=== PATIENT | male | born 1970 | race Caucasian/White ===

== ENCOUNTER 2017-01-15 19:08 | Emergency (ER) | payer MEDICAID ==
[2017-01-15 19:13] VITALS: BP 127/83
[2017-01-15] MEDS ORDERED: KETOROLAC TROMETHAMINE INJ/PF 30 MG/1 ML SDV IV ONE (19:24)
--- NOTE | 2017-01-15 19:33 | ER Document Report ---
ED Medical Screen (RME) - General Chief Complaint: Seizure Stated Complaint: RIB PAIN,SEVERE BODY PAIN Notes: I briefly seen and evaluated this patient in my role as physician in triage. I have initiated orders based on this initial evaluation. Please see my colleague' s documentation for complete history, physical, management, diagnosis, and ultimate disposition. My brief evaluation: Patient presents complaining of left rib pain after having a seizure about 4 days ago. He says that he feels bruised and has pain especially with deep inspiration. He said he was afraid to come to the emergency department because he has had multiple issues over the years. The patient says it feels like he can't get any air into his left lung. He also indicates that a couple of days ago he tripped and hit the right side of his pelvis. He has some pain there as well. Patient denies hitting his head or headaches or vision disturbance. He is not on any blood thinners. The patient reports a long history of multiple trauma requiring reconstruction of his mandible and cervical spine. Reportedly in a separate incident he had intracranial hemorrhage after head trauma and was flown to [facility] where he had emergent neurosurgical decompression. He suffers from seizures for about a year now. On exam, patient alert and oriented no acute distress vital signs are stable patient is afebrile nontoxic appearing. Chest sounds are clear and equal bilaterally with no wheezes rales or rhonchi. Heart rate and rhythm are normal no murmurs. There is some bruising to the left breast left lower rib cage and left flank area. There is also bruising to the right lateral hip region. Medical decision making: We'll get imaging of areas injured and start with Toradol for pain management. TRAVEL OUTSIDE OF THE [place] IN LAST 30 DAYS: No - Related Data Allergies/Adverse Reactions: codeine [Codeine] Allergy (Verified 01/15/17 19:15) nalbuphine HCl [From Nubain] Allergy (Verified 01/15/17 19:15) Past Medical History Pulmonary Medical History: Reports: Hx Asthma Neurological Medical History: Reports: Hx Seizures Renal/ Medical History: Denies: Hx Peritoneal Dialysis GI Medical History: Reports: Hx Hepatitis - Hep C, Hx Ulcer Musculoskeltal Medical History: Reports Hx Arthritis, Reports Hx Musculoskeletal Deformity, Reports Hx Musculoskeletal Trauma Psychiatric Medical History: Reports: Hx Attention Deficit Hyperactivity Disorder, Hx Bipolar Disorder, Hx Depression Traumatic Medical History: Reports: Hx Traumatic Brain Injury Infectious Medical History: Reports: Hx Hepatitis - Hep C Past Surgical History: Reports: Hx Orthopedic Surgery - c6-c7 fusion, lower jaw reconstructions - Immunizations Hx Diphtheria, Pertussis, Tetanus Vaccination: No Physical Exam - Vital signs Vitals: Temp Pulse Resp BP Pulse Ox 98.3 F 95 19 127/83 H 97 01/15/17 19:11 01/15/17 19:11 01/15/17 19:11 01/15/17 19:11 01/15/17 19:11 Course - Vital Signs Vital signs: Temp Pulse Resp BP Pulse Ox 98.3 F 95 19 127/83 H 97 01/15/17 19:11 01/15/17 19:11 01/15/17 19:11 01/15/17 19:11 01/15/17 19:11
[2017-01-15 19:50] LABS: ABSOLUTE EOSINOPHILS # (AUTO) 0.2 10^3/uL (0.0-0.6); ABSOLUTE LYMPHOCYTES (AUTO) 1.9 10^3/uL (0.5-4.7); ABSOLUTE MONOCYTES (AUTO) 0.3 10^3/uL (0.1-1.4); ABSOLUTE NEUT (AUTO) 2.2 10^3/uL (1.7-8.2); EOSINOPHILS % (AUTO) 4.1 % (0-6); LYMPHOCYTES % (AUTO) 41.4 % (13-45); MEAN CORPUSCULAR HEMOGLOBIN 29.5 pg (27.0-33.4); MEAN CORPUSCULAR HGB CONC 33.2 g/dL (32.0-36.0); MEAN CORPUSCULAR VOLUME 89 fl (80-97); MONOCYTES % (AUTO) 5.9 % (3-13); RED CELL DISTRIBUTION WIDTH 13.9 % (11.5-14.0); SEGMENTED NEUTROPHILS % (AUTO) 47.6 % (42-78); WHITE BLOOD COUNT 4.7 10^3/uL (4.0-10.5)
[2017-01-15 20:09] LABS: ALANINE AMINOTRANSFERASE 62 U/L (21-72); ALBUMIN 4.3 g/dL (3.5-5.0); ALKALINE PHOSPHATASE 70 U/L (38-126); ANION GAP 13 (5-19); ASPARTATE AMINO TRANSFERASE 60 U/L (17-59); BILIRUBIN,DIRECT 0.4 mg/dL (0.0-0.4); BILIRUBIN,TOTAL 0.9 mg/dL (0.2-1.3); BLOOD UREA NITROGEN 14 mg/dL (7-20); CALCIUM 9.3 mg/dL (8.4-10.2); CARBON DIOXIDE 30 mmol/L (22-30); CHLORIDE 104 mmol/L (98-107); GLUCOSE 100 mg/dL (75-110); POTASSIUM 3.9 mmol/L (3.6-5.0); SODIUM 147.2 mmol/L (137-145); TOTAL PROTEIN 7.9 g/dL (6.3-8.2)
[2017-01-15] MEDS ORDERED: OXYCODONE-ACETAMINOPHEN 5-325 MG TABLET PO ONE (21:51)
--- NOTE | 2017-01-15 22:00 | ER Document Report ---
ED General - General Chief Complaint: Seizure Stated Complaint: RIB PAIN,SEVERE BODY PAIN Mode of Arrival: Ambulatory Information source: Patient Notes: 46-year-old male presents with complaints of rib pain. Patient notes he was seizure 4 days ago struck an object and since then has been having pain. Patient admits that he used to take 140 mg of methadone a day and for Percocet today but that he cut down on his pain medication. admits to sob TRAVEL OUTSIDE OF THE [place] IN LAST 30 DAYS: No - HPI Onset: Last week Onset/Duration: Persistent Quality of pain: Achy Severity: Mild Pain Level: 1 Associated symptoms: Shortness of breath Exacerbated by: Deep breathing Relieved by: Denies Similar symptoms previously: No Recently seen / treated by doctor: No - Related Data Allergies/Adverse Reactions: codeine [Codeine] Allergy (Verified 01/15/17 19:15) nalbuphine HCl [From Nubain] Allergy (Verified 01/15/17 19:15) Past Medical History - Social History Smoking Status: Never Smoker Cigarette use (# per day): No Chew tobacco use (# tins/day): No Smoking Education Provided: No Family History: Reviewed & Not Pertinent Patient has suicidal ideation: No Patient has homicidal ideation: No Pulmonary Medical History: Reports: Hx Asthma Neurological Medical History: Reports: Hx Seizures Renal/ Medical History: Denies: Hx Peritoneal Dialysis GI Medical History: Reports: Hx Hepatitis - Hep C, Hx Ulcer Musculoskeltal Medical History: Reports Hx Arthritis, Reports Hx Musculoskeletal Deformity, Reports Hx Musculoskeletal Trauma Psychiatric Medical History: Reports: Hx Attention Deficit Hyperactivity Disorder, Hx Bipolar Disorder, Hx Depression Traumatic Medical History: Reports: Hx Traumatic Brain Injury Infectious Medical History: Reports: Hx Hepatitis - Hep C Past Surgical History: Reports: Hx Orthopedic Surgery - c6-c7 fusion, lower jaw reconstructions - Immunizations Hx Diphtheria, Pertussis, Tetanus Vaccination: No Review of Systems - Review of Systems Notes: REVIEW OF SYSTEMS: CONSTITUTIONAL : Denies fever, chills, or sweats. Denies recent illness. EENT: Denies eye, ear, throat, or mouth pain or symptoms. Denies nasal or sinus congestion or discharge. Denies throat, tongue, or mouth swelling or difficulty swallowing. CARDIOVASCULAR: Denies chest pain. Denies palpitations or racing or irregular heart beat. Denies ankle edema. RESPIRATORY: Admits to left rib pain shortness of breath GASTROINTESTINAL: Denies abdominal pain or distention. Denies nausea, vomiting , or diarrhea. Denies blood in vomitus, stools, or per rectum. Denies black, tarry stools. Denies constipation. GENITOURINARY: Denies difficulty urinating, painful urination, burning, frequency, blood in urine, or discharge. MUSCULOSKELETAL: Denies back or neck pain or stiffness. Denies joint pain or swelling. SKIN: Denies rash, lesions or sores. HEMATOLOGIC : Denies easy bruising or bleeding. LYMPHATIC: Denies swollen, enlarged glands. NEUROLOGICAL: Denies confusion or altered mental status. Denies passing out or loss of consciousness. Denies dizziness or lightheadedness. Denies headache. Denies weakness or paralysis or loss of use of either side. Denies problems with gait or speech. Denies sensory loss, numbness, or tingling. Denies seizures. PSYCHIATRIC: Denies anxiety or stress. Denies depression, suicidal ideation, or homicidal ideation. ALL OTHER SYSTEMS REVIEWED AND NEGATIVE. Dictation was performed using [employer] voice recognition software PHYSICAL EXAMINATION: GENERAL: Well-appearing, well-nourished and in no acute distress. HEAD: Atraumatic, normocephalic. EYES: Pupils equal round and reactive to light, extraocular movements intact, sclera anicteric, conjunctiva are normal. ENT: Nares patent, oropharynx clear without exudates. Moist mucous membranes. NECK: Normal range of motion, supple without lymphadenopathy LUNGS: Faint end expiratory wheezing bilateral, no respiratory distress HEART: Regular rate and rhythm without murmurs ABDOMEN: Soft, nontender, nondistended abdomen. No guarding, no rebound. No masses appreciated. Musculoskeletal: Normal range of motion, no pitting or edema. No cyanosis. NEUROLOGICAL: Cranial nerves grossly intact. Normal speech, normal gait. Normal sensory, motor exams PSYCH: Normal mood, normal affect. SKIN: Warm, Dry, normal turgor, no rashes or lesions noted. Physical Exam - Vital signs Vitals: Temp Pulse Resp BP Pulse Ox 98.3 F 95 19 127/83 H 97 01/15/17 19:11 01/15/17 19:11 01/15/17 19:11 01/15/17 19:11 01/15/17 19:11 Course - Re-evaluation Re-evalutation: 01/15/17 21:59 X-ray were read as negative a CT has been ordered for further evaluation 01/15/17 23:07 CTs noted no significant abnormality, patient continuously asks for Percocet, I believe this is the real cause of his concern at this time After performing a Medical Screening Examination, I estimate there is LOW risk for INTRACRANIAL HEMORRHAGE, UNSTABLE SPINE FRACTURE, CENTRAL CORD SYNDROME, CAUDA EQUINA, THORACIC AORTIC DISSECTION, PNEUMOTHORAX, PERFORATED BOWEL, RUPTURED ABDOMINAL AORTIC ANEURYSM, ACUTE TENDON RUPTURE, COMPARTMENT SYNDROME, or OPEN FRACTURE, thus I consider the discharge disposition reasonable. Also, there is no evidence or peritonitis, sepsis, or toxicity. I have reevaluated this patient multiple times and no significant life threatening changes are noted. The patient and I have discussed the diagnosis and risks, and we agree with discharging home to follow-up with their primary doctor with the understanding that symptoms and presentations can change. We also discussed returning to the Emergency Department immediately if new or worsening symptoms occur. We have discussed the symptoms which are most concerning (e.g., bloody stool, fever, changing or worsening pain, vomiting) that necessitate immediate return. - Vital Signs Vital signs: Temp Pulse Resp BP Pulse Ox 98.3 F 95 19 127/83 H 97 01/15/17 19:11 01/15/17 19:11 01/15/17 19:11 01/15/17 19:11 01/15/17 19:11 - Laboratory Result Diagrams: 01/15/17 19:40 01/15/17 19:40 Laboratory results interpreted by me: 01/15/17 01/15/17 19:40 19:40 Hgb 13.0 L Sodium 147.2 H AST 60 H - Diagnostic Test Radiology reviewed: Image reviewed, Reports reviewed Discharge - Discharge Clinical Impression: Chest wall pain, Methadone dependence Condition: Stable Disposition: HOME, SELF-CARE Instructions: Chest Wall Pain ([facility]) Prescriptions: Oxycodone HCl/Acetaminophen [Percocet 5-325 mg Tablet] 1 - 2 tab PO Q4H PRN #15 tablet PRN Reason: Referrals: BUD ANDERSON MD [Primary Care Provider] - 01/18/17
== END 2017-01-15 23:25 | disposition home or self-care (01) ==
LOC: ER 19:08
DX: R07.81 Pleurodynia (principal); F11.20 Opioid dependence, uncomplicated; M79.1 Myalgia; R06.02 Shortness of breath; Z88.6 Allergy status to analgesic agent; Z86.19 Personal history of other infectious and parasitic diseases; Z87.820 Personal history of traumatic brain injury; Z98.1 Arthrodesis status
CPT/HCPCS: 36415; 71020; 71260; 80053; 85025; 99284

== ENCOUNTER 2017-07-11 16:04 | Emergency (ER) | payer MEDICAID ==
--- NOTE | 2017-07-11 16:36 | ER Document Report ---
ED Medical Screen (RME) - General TRAVEL OUTSIDE OF THE [place] IN LAST 30 DAYS: No <JERONIMO MONTE - Last Filed: 07/11/17 16:37> <TARALITTLEGIAN - Last Filed: 07/11/17 18:07> - General Chief Complaint: Seizure Stated Complaint: POSSIBLE SEIZURES Time Seen by Provider: 07/11/17 16:27 Notes: Patient is a 47 year old male presenting to the emergency department for seizures. Patient did not take his seizure medication today. Patient's father brought him into the ER today and he was present during both seizures. Father states that the first seizure occurred while the patient was in the bath tub. Patient was given 1 of his seizure medications during the seizure. Patient had another a few hours later and was also given one of his medications. Patient has had seizures for 2 years and is prescribed 3 types of seizure medications. Patient states that he always runs out of his medications 1 day early because his doctor does not prescribe them long enough. Father states that the patient was shaking, unable to talk, and did not have incontinence during the episodes. Patient has hepatitis C. (JERONIMO MONTE) - Related Data Allergies/Adverse Reactions: codeine [Codeine] Allergy (Verified 07/11/17 16:09) nalbuphine HCl [From Nubain] Allergy (Verified 07/11/17 16:09) Past Medical History - Social History Chew tobacco use (# tins/day): No Frequency of alcohol use: None Drug Abuse: None Pulmonary Medical History: Reports: Hx Asthma Neurological Medical History: Reports: Hx Seizures Renal/ Medical History: Denies: Hx Peritoneal Dialysis GI Medical History: Reports: Hx Hepatitis - Hep C, Hx Ulcer Musculoskeltal Medical History: Reports Hx Arthritis, Reports Hx Musculoskeletal Deformity, Reports Hx Musculoskeletal Trauma Psychiatric Medical History: Reports: Hx Attention Deficit Hyperactivity Disorder, Hx Bipolar Disorder, Hx Depression Traumatic Medical History: Reports: Hx Traumatic Brain Injury Infectious Medical History: Reports: Hx Hepatitis - Hep C Past Surgical History: Reports: Hx Orthopedic Surgery - c6-c7 fusion, lower jaw reconstructions - Immunizations Hx Diphtheria, Pertussis, Tetanus Vaccination: No History of Influenza Vaccine for 07/2017 - 12/2017 Season: Refused <JERONIMO MONTE - Last Filed: 07/11/17 16:37> Physical Exam <JERONIMO MONTE - Last Filed: 07/11/17 16:37> <GIAN ROMERO - Last Filed: 07/11/17 18:07> - Vital signs Vitals: Temp Pulse Resp BP Pulse Ox 98.2 F 130 H 20 133/88 H 94 07/11/17 16:10 07/11/17 16:10 07/11/17 16:10 07/11/17 16:10 07/11/17 16:10 - Notes Notes: GENERAL: Alert, interacts well, appears upset. Mild distress. HEAD: Normocephalic, atraumatic, no facial droop. LUNGS:No respiratory distress. EXTREMITIES: Moves all 4 extremities spontaneously. No pronator drift. 5/5 great toe raise strength bilaterally. No deformity to left shoulder but complains of pain with elevation of the left arm. NEUROLOGICAL: Alert and oriented x3. Normal speech. No weakness. (JERONIMO MONTE) Course - Laboratory Result Diagrams: 07/11/17 16:55 07/11/17 16:55 <GIAN ROMERO - Last Filed: 07/11/17 18:07> - Vital Signs Vital signs: Temp Pulse Resp BP Pulse Ox 98.2 F 130 H 20 133/88 H 94 07/11/17 16:10 07/11/17 16:10 07/11/17 16:10 07/11/17 16:10 07/11/17 16:10 - Laboratory Laboratory results interpreted by me: 07/11/17 07/11/17 16:55 16:55 Seg Neutrophils % 41.9 L Lymphocytes % 45.7 H Direct Bilirubin 0.5 H Total Protein 8.5 H Scribe Documentation - Scribe Written by [employer]:: Christine Santos 07/11/17 17:00 acting as scribe for :: Dave <JERONIMO MONTE - Last Filed: 07/11/17 16:37>
[2017-07-11 17:17] LABS: ABSOLUTE BASOPHILS # (AUTO) 0.1 10^3/uL (0.0-0.2); ABSOLUTE EOSINOPHILS # (AUTO) 0.2 10^3/uL (0.0-0.6); ABSOLUTE LYMPHOCYTES (AUTO) 2.7 10^3/uL (0.5-4.7); ABSOLUTE MONOCYTES (AUTO) 0.5 10^3/uL (0.1-1.4); ABSOLUTE NEUT (AUTO) 2.5 10^3/uL (1.7-8.2); BASOPHILS % (AUTO) 1.4 % (0-2); EOSINOPHILS % (AUTO) 2.8 % (0-6); HEMATOCRIT 44.9 % (37.9-51.0); HGB HCT DIFFERENCE 0.1; LYMPHOCYTES % (AUTO) 45.7 % (13-45); MEAN CORPUSCULAR HEMOGLOBIN 29.7 pg (27.0-33.4); MEAN CORPUSCULAR HGB CONC 33.5 g/dL (32.0-36.0); MEAN CORPUSCULAR VOLUME 89 fl (80-97); MONOCYTES % (AUTO) 8.2 % (3-13); RED BLOOD COUNT 5.06 10^6/uL (4.35-5.55); RED CELL DISTRIBUTION WIDTH 13.3 % (11.5-14.0); SEGMENTED NEUTROPHILS % (AUTO) 41.9 % (42-78)
[2017-07-11 17:25] LABS: APPEARANCE,URINE CLEAR; BILIRUBIN,URINE NEGATIVE (NEGATIVE); GLUCOSE, URINE NEGATIVE (NEGATIVE); KETONES,URINE NEGATIVE (NEGATIVE); LEUKOCYTE ESTERASE,URINE NEGATIVE (NEGATIVE); NITRITE,URINE NEGATIVE (NEGATIVE); PROTEIN,URINE NEGATIVE (NEGATIVE); URINE SPECIFIC GRAVITY 1.004; UROBILINOGEN,URINE NEGATIVE mg/dL (<2.0)
[2017-07-11 17:30] LABS: ALANINE AMINOTRANSFERASE 59 U/L (21-72); ALBUMIN 4.7 g/dL (3.5-5.0); ALKALINE PHOSPHATASE 87 U/L (38-126); ANION GAP 14 (5-19); ASPARTATE AMINO TRANSFERASE 43 U/L (17-59); BILIRUBIN,DIRECT 0.5 mg/dL (0.0-0.4); BILIRUBIN,TOTAL 0.5 mg/dL (0.2-1.3); BLOOD UREA NITROGEN 9 mg/dL (7-20); CARBON DIOXIDE 27 mmol/L (22-30); CHLORIDE 103 mmol/L (98-107); CREATININE RESULT 0.99 mg/dL (0.52-1.25); GLUCOSE 96 mg/dL (75-110); POTASSIUM 4.1 mmol/L (3.6-5.0); SODIUM 144.2 mmol/L (137-145); TOTAL PROTEIN 8.5 g/dL (6.3-8.2)
[2017-07-11] MEDS ORDERED: METHADONE HCL 10 MG TABLET PO ONE (18:34)
[2017-07-11] MEDS ORDERED: LORAZEPAM 1 MG TABLET PO ONE (18:34)
--- NOTE | 2017-07-11 18:41 | ER Document Report ---
ED General - General Chief Complaint: Seizure Stated Complaint: POSSIBLE SEIZURES Time Seen by Provider: 07/11/17 16:27 Mode of Arrival: Ambulatory Information source: Patient Notes: 47-year-old male history of brain injury seizure episodes anxiety presents after an episode today where he was shaking excessively but was able to talk to his father and was conscience during this episode. Father notes 2 similar episodes. Patient in the past this season gone into cardiac arrest but was not in cardiac arrest today patient notes that he did not take his anxiety medication or his pain medications today TRAVEL OUTSIDE OF THE [place] IN LAST 30 DAYS: No - HPI Onset: Just prior to arrival Onset/Duration: Sudden Quality of pain: Achy Severity: Mild Pain Level: 1 Associated symptoms: Other Exacerbated by: Denies Relieved by: Denies Similar symptoms previously: Yes Recently seen / treated by doctor: Yes - Related Data Allergies/Adverse Reactions: codeine [Codeine] Allergy (Verified 07/11/17 16:09) nalbuphine HCl [From Nubain] Allergy (Verified 07/11/17 16:09) Past Medical History - Social History Smoking Status: Current Every Day Smoker Cigarette use (# per day): Yes Chew tobacco use (# tins/day): No Smoking Education Provided: No Frequency of alcohol use: None Drug Abuse: None Family History: Reviewed & Not Pertinent Pulmonary Medical History: Reports: Hx Asthma Neurological Medical History: Reports: Hx Seizures Renal/ Medical History: Denies: Hx Peritoneal Dialysis GI Medical History: Reports: Hx Hepatitis - Hep C, Hx Ulcer Musculoskeltal Medical History: Reports Hx Arthritis, Reports Hx Musculoskeletal Deformity, Reports Hx Musculoskeletal Trauma Psychiatric Medical History: Reports: Hx Attention Deficit Hyperactivity Disorder, Hx Bipolar Disorder, Hx Depression Traumatic Medical History: Reports: Hx Traumatic Brain Injury Infectious Medical History: Reports: Hx Hepatitis - Hep C Past Surgical History: Reports: Hx Orthopedic Surgery - c6-c7 fusion, lower jaw reconstructions - Immunizations Hx Diphtheria, Pertussis, Tetanus Vaccination: No Review of Systems - Review of Systems Notes: REVIEW OF SYSTEMS: CONSTITUTIONAL : Denies fever, chills, or sweats. Denies recent illness. EENT: Denies eye, ear, throat, or mouth pain or symptoms. Denies nasal or sinus congestion or discharge. Denies throat, tongue, or mouth swelling or difficulty swallowing. CARDIOVASCULAR: Denies chest pain. Denies palpitations or racing or irregular heart beat. Denies ankle edema. RESPIRATORY: Denies cough, cold, or chest congestion. Denies shortness of breath, difficulty breathing, or wheezing. GASTROINTESTINAL: Denies abdominal pain or distention. Denies nausea, vomiting , or diarrhea. Denies blood in vomitus, stools, or per rectum. Denies black, tarry stools. Denies constipation. GENITOURINARY: Denies difficulty urinating, painful urination, burning, frequency, blood in urine, or discharge. MUSCULOSKELETAL: Denies back or neck pain or stiffness. Denies joint pain or swelling. SKIN: Denies rash, lesions or sores. HEMATOLOGIC : Denies easy bruising or bleeding. LYMPHATIC: Denies swollen, enlarged glands. NEUROLOGICAL: Admits to an episode of shaking PSYCHIATRIC: Admits to anxiety ALL OTHER SYSTEMS REVIEWED AND NEGATIVE. Dictation was performed using [employer] voice recognition software PHYSICAL EXAMINATION: GENERAL: Well-appearing, well-nourished and in no acute distress. HEAD: Atraumatic, normocephalic. EYES: Pupils equal round and reactive to light, extraocular movements intact, sclera anicteric, conjunctiva are normal. ENT: Nares patent, oropharynx clear without exudates. Moist mucous membranes. NECK: Normal range of motion, supple without lymphadenopathy LUNGS: Breath sounds clear to auscultation bilaterally and equal. No wheezes rales or rhonchi. HEART: Regular rate and rhythm without murmurs ABDOMEN: Soft, nontender, nondistended abdomen. No guarding, no rebound. No masses appreciated. Musculoskeletal: Normal range of motion, no pitting or edema. No cyanosis. NEUROLOGICAL: Cranial nerves grossly intact. Normal speech, normal gait. Normal sensory, motor exams PSYCH: Normal mood, normal affect. SKIN: Warm, Dry, normal turgor, no rashes or lesions noted. Physical Exam - Vital signs Vitals: Temp Pulse Resp BP Pulse Ox 98.2 F 130 H 20 133/88 H 94 07/11/17 16:10 07/11/17 16:10 07/11/17 16:10 07/11/17 16:10 07/11/17 16:10 Course - Re-evaluation Re-evalutation: 07/11/17 18:41 Patient's lab work noted no significant abnormality, I believe the patient was having a panic attack as he was alert oriented and remembers the whole episode. Patient will be given his benzo and his methadone and will follow up with his primary care physician tomorrow After performing a Medical Screening Examination, I estimate there is LOW risk for ACUTE GLAUCOMA, TEMPORAL ARTERITIS, MENINGITIS, INCRANIAL HEMORRHAGE, or ISCHEMIC STROKE thus I consider the discharge disposition reasonable. I have reevaluated this patient multiple times and no significant life threatening changes are noted. The patient and I have discussed the diagnosis and risks, and we agree with discharging home with close follow-up with the understanding that symptoms and presentations can change. We also discussed returning to the Emergency Department immediately if new or worsening symptoms occur. We have discussed the symptoms which are most concerning (e.g., changing or worsening symptoms, new numbness or weakness, vomiting, fever) that necessitate immediate return. - Vital Signs Vital signs: Temp Pulse Resp BP Pulse Ox 98.2 F 130 H 20 133/88 H 94 07/11/17 16:10 07/11/17 16:10 07/11/17 16:10 07/11/17 16:10 07/11/17 16:10 - Laboratory Result Diagrams: 07/11/17 16:55 07/11/17 16:55 Laboratory results interpreted by me: 07/11/17 07/11/17 16:55 16:55 Seg Neutrophils % 41.9 L Lymphocytes % 45.7 H Direct Bilirubin 0.5 H Total Protein 8.5 H Discharge - Discharge Clinical Impression: Panic attack, History of seizure disorder Condition: Stable Disposition: HOME, SELF-CARE Instructions: Seizure, Known Epileptic ([facility]) Referrals: BUD ANDERSON MD [Primary Care Provider] - Follow up tomorrow
[2017-07-11 19:01] VITALS: BP 126/99
--- NOTE | 2017-07-12 06:24 | EKG REPORT ---
SEVERITY:- OTHERWISE NORMAL ECG - SINUS TACHYCARDIA : Confirmed by: Georgiana Palacio MD 12-Jul-2017 06:23:06
== END 2017-07-11 19:01 | disposition home or self-care (01) ==
LOC: ER 16:04
DX: F41.0 Panic disorder [episodic paroxysmal anxiety] (principal); G40.909 Epilepsy, unspecified, not intractable, without status epilepticus; F17.210 Nicotine dependence, cigarettes, uncomplicated; Z86.19 Personal history of other infectious and parasitic diseases; Z87.820 Personal history of traumatic brain injury; Z98.1 Arthrodesis status; Z88.6 Allergy status to analgesic agent
CPT/HCPCS: 93005; 99284; 36415; 80177; 85025; 80053; 81001; 93010; J3490

== ENCOUNTER 2018-01-06 07:24 | Emergency (ER) | payer MEDICAID, OTHER ==
[2018-01-06] MEDS ORDERED: METHYLPREDNISOLONE INJ 125 MG/2 ML SDV IV ONE (07:46)
--- NOTE | 2018-01-06 07:46 | ER Document Report ---
ED General - General Chief Complaint: Shortness Of Breath Stated Complaint: SHORTNESS OF BREATH Time Seen by Provider: 01/06/18 07:33 Notes: 47-year-old male who has multiple complaints but mainly complains of some mild difficulty breathing over the last several days. Patient reports being diagnosed with influenza approximately 3 weeks ago. He states he has been doing okay since then but over the last several days he states he has been feeling a little short of breath. He has been using his father's oxygen on and off. The patient denies fever or chills. Patient also states he is very anxious and upset that his chronic pain doctor and neurologist Dr. Mckeon is out of business and he has no one to get his Xanax or psychiatric medicines from. He has been to his family doctor who he states is not helping him. Patient denies any chest pain. EMS reported wheezing upon arrival. Gave him a nebulizer treatment. Patient is feeling better TRAVEL OUTSIDE OF THE [place] IN LAST 30 DAYS: No - Related Data Allergies/Adverse Reactions: codeine [Codeine] Allergy (Verified 07/11/17 16:09) nalbuphine HCl [From Nubain] Allergy (Verified 07/11/17 16:09) Past Medical History - Social History Smoking Status: Current Every Day Smoker Family History: Reviewed & Not Pertinent Pulmonary Medical History: Reports: Hx Asthma Neurological Medical History: Reports: Hx Seizures Renal/ Medical History: Denies: Hx Peritoneal Dialysis GI Medical History: Reports: Hx Hepatitis - Hep C, Hx Ulcer Musculoskeltal Medical History: Reports Hx Arthritis, Reports Hx Musculoskeletal Deformity, Reports Hx Musculoskeletal Trauma Psychiatric Medical History: Reports: Hx Attention Deficit Hyperactivity Disorder, Hx Bipolar Disorder, Hx Depression Traumatic Medical History: Reports: Hx Traumatic Brain Injury Infectious Medical History: Reports: Hx Hepatitis - Hep C Past Surgical History: Reports: Hx Orthopedic Surgery - c6-c7 fusion, lower jaw reconstructions - Immunizations Hx Diphtheria, Pertussis, Tetanus Vaccination: No Review of Systems - Review of Systems Constitutional: No symptoms reported EENT: No symptoms reported Cardiovascular: No symptoms reported Respiratory: Cough, Short of breath, Wheezing Gastrointestinal: No symptoms reported Genitourinary: No symptoms reported Male Genitourinary: No symptoms reported Musculoskeletal: No symptoms reported Skin: No symptoms reported Hematologic/Lymphatic: No symptoms reported Neurological/Psychological: No symptoms reported -: Yes All other systems reviewed and negative Physical Exam - Vital signs Vitals: Temp Pulse Resp BP Pulse Ox 98.3 F 92 18 111/68 97 01/06/18 07:33 01/06/18 07:33 01/06/18 07:33 01/06/18 07:33 01/06/18 07:33 - Notes Notes: GENERAL_APPEARANCE: well_nourished, alert, cooperative, no_acute_distress, no_ obvious_discomfort. VITALS: reviewed, see vital signs table. HEAD: no_swelling\tenderness on the head. EYES: PERRL, EOMI, conjunctiva_clear. NOSE: no_nasal_discharge. MOUTH: (-)decreased moisture. THROAT: no_tonsilar_inflammation, no_airway_obstruction. no_lymphadenopathy NECK: supple, no_neck_tenderness, (-)thyromegaly. BACK: no_back_tenderness. CHEST_WALL: no_chest_tenderness. LUNGS: Very scant_wheezing, no_rales, no_rhonchi, (-)accessory muscle use, good air exchange bilateral. HEART: normal_rate, normal_rhythm, normal_S1, normal_S2, (-)S3, (-)S4, no_ murmur, no_rub. ABDOMEN: normal_BS, soft, no_abd_tenderness, (-)guarding, (-)rebound, no_ organomegaly, no_abd_masses. EXTREMITIES: good pulses in all_extremities, no_swelling\tenderness in the extremities, no_edema. SKIN: warm, dry, good_color, no_rash. MENTAL_STATUS: speech_clear, oriented_X_3, anxious_affect, responds_ appropriately to questions. NEURO: Neg Motor or Sensory Deficits on exam, CN 2-12 intact, DTR 2+ symmetric x 4, No cerbellar signs Course - Re-evaluation Re-evalutation: 01/06/18 07:45 47-year-old male history of asthma presents with some difficulty breathing. Patient was given an aerosol treatment via EMS. We will give the patient a dose of steroids here. He is breathing well and has no oxygen requirements. Patient is very anxious and was difficult to get a wording edgewise while speaking with him. He states he took an extra Vyvanse this morning. The patient has no calf pain or leg swelling on my exam. Homans sign is negative bilateral. There is no history of DVT or PE that I am aware of. She is requesting pain management referral. I spoke with him that his family doctor would be the best lumber yard worker for these kind of referrals. He also asked if I could prescribe him his Xanax and pain medicine. Again I explained to him that I cannot prescribe chronic pain medicines or psychiatric medicines I spoke with him about the stop act. 01/06/18 09:46 Laboratory 01/06/18 01/06/18 01/06/18 07:16 07:16 07:16 WBC 5.4 RBC 4.61 Hgb 13.4 L Hct 41.0 MCV 89 MCH 29.1 MCHC 32.7 RDW 13.4 Plt Count 412 Seg Neutrophils % 56.2 Lymphocytes % 31.6 Monocytes % 11.2 Eosinophils % 0.5 Basophils % 0.5 Absolute Neutrophils 3.0 Absolute Lymphocytes 1.7 Absolute Monocytes 0.6 Absolute Eosinophils 0.0 Absolute Basophils 0.0 Sodium 150.0 H Potassium 3.4 L Chloride 107 Carbon Dioxide 28 Anion Gap 15 BUN 11 Creatinine 0.91 Est GFR ( Amer) > 60 Est GFR (Non-Af Amer) > 60 Glucose 100 Calcium 9.5 Total Bilirubin 0.6 Direct Bilirubin 0.3 Neonat Total Bilirubin Not Reportable Neonat Direct Bilirubin Not Reportable Neonat Indirect Bili Not Reportable AST 66 H ALT 63 Alkaline Phosphatase 64 Creatine Kinase 200 H Troponin I < 0.012 Total Protein 8.3 H Albumin 4.5 Chest X-Ray 01/06/18 07:40 IMPRESSION: Lungs hyperinflated and hyperlucent from obstructive disease. No focal infiltrates. 01/06/18 09:48 Patient is doing much better I reexamined his lungs lungs are clear. I spoke with him by caring for his asthma disease. The patient is very focused on narcotic pain medicine. He stated Dr. Mckeon is no longer working. He has saw his primary care doctor Dr. Anderson and they have set him up with pain management but he is yet to have an appointment. Patient is well known to us - A. I spoke with the patient and they will be unable to provide him with narcotics. The patient expresses frustration and stated he would just have to check in again. I spoke with him at length. And told him to call his family doctor for further care. - Vital Signs Vital signs: Temp Pulse Resp BP Pulse Ox 98.3 F 92 18 111/68 98 01/06/18 07:33 01/06/18 07:33 01/06/18 07:33 01/06/18 07:33 01/06/18 08:25 - Laboratory Result Diagrams: 01/06/18 07:16 01/06/18 07:16 Laboratory results interpreted by me: 01/06/18 01/06/18 07:16 07:16 Hgb 13.4 L Sodium 150.0 H Potassium 3.4 L AST 66 H Creatine Kinase 200 H Total Protein 8.3 H - EKG Interpretation by Co EKG shows normal: Sinus rhythm Rate: Normal Rhythm: NSR Discharge - Discharge Clinical Impression: Asthma exacerbation attacks Condition: Good Disposition: HOME, SELF-CARE Instructions: Asthma ([facility]) Additional Instructions: Please follow-up with Dr. Anderson and your pain specialist for further care Referrals: BUD ANDERSON MD [Primary Care Provider] - Follow up as needed
[2018-01-06 08:30] LABS: ABSOLUTE LYMPHOCYTES (AUTO) 1.7 10^3/uL (0.5-4.7); ABSOLUTE MONOCYTES (AUTO) 0.6 10^3/uL (0.1-1.4); BASOPHILS % (AUTO) 0.5 % (0-2); EOSINOPHILS % (AUTO) 0.5 % (0-6); HEMOGLOBIN 13.4 g/dL (13.5-17.0); LYMPHOCYTES % (AUTO) 31.6 % (13-45); MEAN CORPUSCULAR HEMOGLOBIN 29.1 pg (27.0-33.4); MEAN CORPUSCULAR HGB CONC 32.7 g/dL (32.0-36.0); MEAN CORPUSCULAR VOLUME 89 fl (80-97); MONOCYTES % (AUTO) 11.2 % (3-13); PLATELET COUNT 412 10^3/uL (150-450); RED BLOOD COUNT 4.61 10^6/uL (4.35-5.55); RED CELL DISTRIBUTION WIDTH 13.4 % (11.5-14.0); SEGMENTED NEUTROPHILS % (AUTO) 56.2 % (42-78); TOTAL CELLS COUNTED % (AUTO) 100 %; WHITE BLOOD COUNT 5.4 10^3/uL (4.0-10.5)
--- NOTE | 2018-01-06 08:38 | RADIOLOGY REPORT (SQ) ---
EXAM DESCRIPTION: CHEST SINGLE VIEW COMPLETED DATE/TIME: 01/06/2018 7:59 am REASON FOR STUDY: SOB COMPARISON: CT chest 01/15/2017 Chest films 01/15/2017, 07/08/2015 EXAM PARAMETERS: NUMBER OF VIEWS: One view. TECHNIQUE: Single frontal radiographic view of the chest acquired. RADIATION DOSE: NA LIMITATIONS: None. FINDINGS: LUNGS AND PLEURA: Lungs are hyperinflated and hyperlucent from obstructive disease. No acute infiltrates. No pleural effusion. No pneumothorax. MEDIASTINUM AND HILAR STRUCTURES: No masses. Contour normal. HEART AND VASCULAR STRUCTURES: Heart normal in size. Normal vasculature. BONES: No acute findings. HARDWARE: None in the chest. OTHER: No other significant finding. IMPRESSION: Lungs hyperinflated and hyperlucent from obstructive disease. No focal infiltrates. TECHNICAL DOCUMENTATION: JOB ID: [id number] [employer]- All Rights Reserved Reading location - IP/workstation name: [email or web address]
[2018-01-06 08:47] LABS: ALANINE AMINOTRANSFERASE 63 U/L (21-72); ALBUMIN 4.5 g/dL (3.5-5.0); ALKALINE PHOSPHATASE 64 U/L (38-126); ANION GAP 15 (5-19); ASPARTATE AMINO TRANSFERASE 66 U/L (17-59); BILIRUBIN,DIRECT 0.3 mg/dL (0.0-0.4); BILIRUBIN,TOTAL 0.6 mg/dL (0.2-1.3); BLOOD UREA NITROGEN 11 mg/dL (7-20); CALCIUM 9.5 mg/dL (8.4-10.2); CARBON DIOXIDE 28 mmol/L (22-30); CHLORIDE 107 mmol/L (98-107); CREATINE KINASE 200 U/L (55-170); GLUCOSE 100 mg/dL (75-110); POTASSIUM 3.4 mmol/L (3.6-5.0); TOTAL PROTEIN 8.3 g/dL (6.3-8.2)
[2018-01-06] MEDS ORDERED: MORPHINE SULFATE 10 MG/ML INJ IV ONE (08:54)
--- NOTE | 2018-01-06 09:12 | EKG REPORT ---
SEVERITY:- NORMAL ECG - SINUS RHYTHM : Confirmed by: Matt Shelton 06-Jan-2018 09:11:31
[2018-01-06 10:52] VITALS: BP 121/78
== END 2018-01-06 10:45 | disposition home or self-care (01) ==
LOC: ER 07:24
DX: J45.901 Unspecified asthma with (acute) exacerbation (principal); F41.9 Anxiety disorder, unspecified; R06.02 Shortness of breath; F17.200 Nicotine dependence, unspecified, uncomplicated; Z88.5 Allergy status to narcotic agent; R05 Cough
CPT/HCPCS: 93005; 99285; 96374; 96375; 36415; 82550; 85025; 80053; 84484; 71045; 93010; J2930; J2270

== ENCOUNTER 2019-04-04 19:54 | Emergency (ER) | payer MEDICAID ==
--- NOTE | 2019-04-04 20:43 | ER Document Report ---
ED Medical Screen (RME) - General Chief Complaint: Psych Problem Stated Complaint: SUICIDE IDEATIONS, SEIZURES Time Seen by Provider: 04/04/19 20:30 Primary Care Provider: BUD ANDERSON MD [Primary Care Provider] - Follow up as needed TRAVEL OUTSIDE OF THE [place] IN LAST 30 DAYS: No - HPI Notes: 04/04/19 20:37 Patient is a 48-year-old male with a history of seizure disorder, multiple previous brain surgeries, chronic pain and on methadone, COPD, mental health disorders who presents complaining of having a seizure yesterday and again this morning despite being on his medicines. He is also been experiencing visual hallucinations. Patient states that all of these things have made him more concerned and have caused him to have worsening of his depressed mood. Patient is not sure how to cope with this setback and states that his family is starting to think that he is crazy. Patient has no SI or HI. He also has chest tightness and wheezing. He is eating and drinking without difficulty. He is urinating normally. Denies fever, neck pain, URI, Abd pain, dysuria, back pain, or rash. I have treated and performed a rapid initial assessment of this patient. A comprehensive ED assessment and evaluation of the patient, analysis of test results and completion of medical decision making process will be conducted by additional ED providers. PHYSICAL EXAMINATION: GENERAL: Well-appearing, well-nourished and in no acute distress. A&Ox4. Answers questions appropriately. LUNGS: b/l expiratory wheezes throughout. HEART: Regular rate and rhythm without murmurs, rubs, gallops. Tachycardic. Extremities: No cyanosis, clubbing, or edema b/l. NEUROLOGICAL: Normal speech, normal gait. Cranial nerves grossly intact. PSYCH: emotional and crying - Related Data Allergies/Adverse Reactions: codeine [Codeine] Allergy (Verified 07/11/17 16:09) nalbuphine HCl [From Nubain] Allergy (Verified 07/11/17 16:09) Past Medical History Pulmonary Medical History: Reports: Hx Asthma Neurological Medical History: Reports: Hx Seizures Renal/ Medical History: Denies: Hx Peritoneal Dialysis GI Medical History: Reports: Hx Hepatitis - Hep C, Hx Ulcer Musculoskeltal Medical History: Reports Hx Arthritis, Reports Hx Musculoskeletal Deformity, Reports Hx Musculoskeletal Trauma Psychiatric Medical History: Reports: Hx Attention Deficit Hyperactivity Disorder, Hx Bipolar Disorder, Hx Depression Traumatic Medical History: Reports: Hx Traumatic Brain Injury Infectious Medical History: Reports: Hx Hepatitis - Hep C Past Surgical History: Reports: Hx Orthopedic Surgery - c6-c7 fusion, lower jaw reconstructions - Immunizations Hx Diphtheria, Pertussis, Tetanus Vaccination: No History of Influenza Vaccine for 07/2017 - 12/2017 Season: Refused Physical Exam - Vital signs Vitals: Temp Pulse Resp BP Pulse Ox 98.2 F 130 H 16 119/90 H 92 04/04/19 20:12 04/04/19 20:12 04/04/19 20:12 04/04/19 20:12 04/04/19 20:12 Course - Vital Signs Vital signs: Temp Pulse Resp BP Pulse Ox 98.2 F 130 H 16 119/90 H 92 04/04/19 20:12 04/04/19 20:12 04/04/19 20:12 04/04/19 20:12 04/04/19 20:12 Doctor's Discharge - Discharge Referrals: BUD ANDERSON MD [Primary Care Provider] - Follow up as needed
[2019-04-04 21:33] LABS: ABSOLUTE BASOPHILS # (AUTO) 0.1 10^3/uL (0.0-0.2); ABSOLUTE LYMPHOCYTES (AUTO) 2.5 10^3/uL (0.5-4.7); ABSOLUTE MONOCYTES (AUTO) 0.6 10^3/uL (0.1-1.4); ABSOLUTE NEUT (AUTO) 5.4 10^3/uL (1.7-8.2); BASOPHILS % (AUTO) 0.7 % (0-2); EOSINOPHILS % (AUTO) 0.1 % (0-6); HEMATOCRIT 42.4 % (37.9-51.0); HEMOGLOBIN 14.3 g/dL (13.5-17.0); LYMPHOCYTES % (AUTO) 29.1 % (13-45); MEAN CORPUSCULAR HEMOGLOBIN 30.4 pg (27.0-33.4); MEAN CORPUSCULAR HGB CONC 33.6 g/dL (32.0-36.0); MEAN CORPUSCULAR VOLUME 91 fl (80-97); MONOCYTES % (AUTO) 7.3 % (3-13); PLATELET COUNT 367 10^3/uL (150-450); RED BLOOD COUNT 4.69 10^6/uL (4.35-5.55); RED CELL DISTRIBUTION WIDTH 13.3 % (11.5-14.0); SEGMENTED NEUTROPHILS % (AUTO) 62.8 % (42-78); TOTAL CELLS COUNTED % (AUTO) 100 %; WHITE BLOOD COUNT 8.6 10^3/uL (4.0-10.5)
[2019-04-04 22:01] LABS: ACETAMINOPHEN < 10 ug/mL (10-30); ALANINE AMINOTRANSFERASE 12 U/L (21-72); ALBUMIN 5.2 g/dL (3.5-5.0); ALCOHOL < 10 mg/dL (NONE DETECTED); ALKALINE PHOSPHATASE 88 U/L (38-126); ANION GAP 15 (5-19); ASPARTATE AMINO TRANSFERASE 29 U/L (17-59); BILIRUBIN,DIRECT 0.3 mg/dL (0.0-0.4); BILIRUBIN,TOTAL 0.8 mg/dL (0.2-1.3); BLOOD UREA NITROGEN 27 mg/dL (7-20); CALCIUM 10.4 mg/dL (8.4-10.2); CARBON DIOXIDE 30 mmol/L (22-30); CHLORIDE 100 mmol/L (98-107); GLUCOSE 138 mg/dL (75-110); POTASSIUM 4.2 mmol/L (3.6-5.0); SALICYLATE < 1.0 mg/dL (2.0-20.0); SODIUM 145.2 mmol/L (137-145)
--- NOTE | 2019-04-04 22:01 | RADIOLOGY REPORT (SQ) ---
EXAM DESCRIPTION: [facility]: XR CHEST 1 VIEW CLINICAL HISTORY: 48 years Male, wheezing COMPARISON: 01/06/2018 FINDINGS: Lungs are clear, with no focal infiltrate, pneumothorax, or pleural effusion. Mediastinum is within normal limits for this positioning. Bony structures are unremarkable. IMPRESSION: 1. No acute pulmonary findings.
[2019-04-04] MEDS ORDERED: NORMAL SALINE 1000 ML 2,000 ML IV ONE (22:46)
[2019-04-04 22:56] LABS: CREATINE KINASE 191 U/L (55-170)
[2019-04-04 22:58] LABS: APPEARANCE,URINE TURBID; BILIRUBIN,URINE NEGATIVE (NEGATIVE); GLUCOSE, URINE NEGATIVE (NEGATIVE); KETONES,URINE NEGATIVE (NEGATIVE); LEUKOCYTE ESTERASE,URINE TRACE (NEGATIVE); NITRITE,URINE NEGATIVE (NEGATIVE); PROTEIN,URINE 100 mg/dL (NEGATIVE); URINE SPECIFIC GRAVITY 1.018; UROBILINOGEN,URINE NEGATIVE mg/dL (<2.0)
[2019-04-04 22:59] LABS: COLOR,URINE YELLOW
[2019-04-04 23:13] LABS: URINE BARBITURATES SCREEN NEGATIVE; URINE BENZODIAZEPINES SCREEN UNCONFIRMED POSITIVE; URINE COCAINE SCREEN UNCONFIRMED POSITIVE; URINE MARIJUANA (THC) SCREEN NEGATIVE; URINE METHADONE SCREEN UNCONFIRMED POSITIVE; URINE PHENCYCLIDINE SCREEN NEGATIVE
[2019-04-05] MEDS ORDERED: METOCLOPRAMIDE HCL INJ/PF 10 MG/2 ML SDV IV ONE (00:02)
--- NOTE | 2019-04-05 00:10 | ER Document Report ---
ED General - General Chief Complaint: Psych Problem Stated Complaint: SUICIDE IDEATIONS, SEIZURES Time Seen by Provider: 04/04/19 20:30 Primary Care Provider: BUD ANDERSON MD [ACTIVE STAFF] - Follow up as needed Notes: jas is a 48-year-old male with a history of seizure disorder, multiple previous brain surgeries, chronic pain and on methadone, COPD, mental health disorders who presents complaining of having a seizure yesterday and again this morning despite being on his medicines. Complained of visual hallucinations and she has but denies this to me. Patient states because he had been doing so well in terms of his seizure frequency for the past 4 months he has felt increasingly depressed and anxious regarding that he is having seizures again. Patient is not sure how to cope with this setback and states that his family is starting to think that he is crazy. Patient has no SI or HI. He also has chest tightness and wheezing. He is eating and drinking without difficulty. When I walk into t he room he is eating a bag of Doritos and drinking a large soda. He is urinating normally. Denies fever, neck pain, URI, Abd pain, dysuria, back pain, or rash. TRAVEL OUTSIDE OF THE [place] IN LAST 30 DAYS: No - Related Data Allergies/Adverse Reactions: codeine [Codeine] Allergy (Verified 07/11/17 16:09) nalbuphine HCl [From Nubain] Allergy (Verified 07/11/17 16:09) Past Medical History - General Information source: Patient - Social History Smoking Status: Current Every Day Smoker Chew tobacco use (# tins/day): No Frequency of alcohol use: None Drug Abuse: None Lives with: Family Family History: Reviewed & Not Pertinent Patient has suicidal ideation: No Patient has homicidal ideation: No Pulmonary Medical History: Reports: Hx Asthma, Hx COPD Neurological Medical History: Reports: Hx Seizures Renal/ Medical History: Denies: Hx Peritoneal Dialysis GI Medical History: Reports: Hx Hepatitis - Hep C, Hx Ulcer Musculoskeletal Medical History: Reports Hx Arthritis, Reports Hx Musculoskeletal Deformity, Reports Hx Musculoskeletal Trauma Psychiatric Medical History: Reports: Hx Attention Deficit Hyperactivity Disorder, Hx Bipolar Disorder, Hx Depression Traumatic Medical History: Reports: Hx Traumatic Brain Injury Infectious Medical History: Reports: Hx Hepatitis - Hep C Past Surgical History: Reports: Hx Orthopedic Surgery - c6-c7 fusion, lower jaw reconstructions - Immunizations Hx Diphtheria, Pertussis, Tetanus Vaccination: No Review of Systems - Review of Systems Notes: Constitutional: Negative for fever. HENT: Negative for sore throat. Eyes: Negative for visual changes. Cardiovascular: Negative for chest pain. Respiratory: Negative for shortness of breath. Gastrointestinal: Negative for abdominal pain, vomiting or diarrhea. Genitourinary: Negative for dysuria. Musculoskeletal: Negative for back pain. Skin: Negative for rash. Neurological: Positive for chronic headaches 10 point ROS negative except as marked above and in HPI. Physical Exam - Vital signs Vitals: Temp Pulse Resp BP Pulse Ox 98.2 F 130 H 16 119/90 H 92 04/04/19 20:12 04/04/19 20:12 04/04/19 20:12 04/04/19 20:12 04/04/19 20:12 Interpretation: Tachycardic Notes: PHYSICAL EXAMINATION: GENERAL: Well-appearing, well-nourished and in no acute distress. HEAD: Atraumatic, normocephalic. EYES: Pupils equal round and reactive to light, extraocular movements intact, sclera anicteric, conjunctiva are normal. ENT: nares patent, oropharynx clear without exudates. Moist mucous membranes. NECK: Normal range of motion, supple without lymphadenopathy LUNGS: Breath sounds clear to auscultation bilaterally and equal. No wheezes rales or rhonchi. HEART: Regular rate and rhythm without murmurs ABDOMEN: Soft, nontender, normoactive bowel sounds. No guarding, no rebound. No masses appreciated. EXTREMITIES: Normal range of motion, no pitting or edema. No cyanosis. NEUROLOGICAL: Face symmetric. Tongue protrudes midline. Extraocular motions intact. Pupils are 2 mm and equally reactive. Normal speech, normal gait. 5 out of 5 strength in both the distal and proximal upper and lower extremities bilaterally. Sensation is grossly intact throughout. Finger to nose testing normal. Pronator drift normal. PSYCH: Normal mood, normal affect. SKIN: Warm, Dry, normal turgor, no rashes or lesions noted. Course - Re-evaluation Re-evalutation: 04/05/19 00:12 Patient is presented with multiple complaints his main concerns of which appear to be chronic headaches which he has had for years. The patient is not here for psychiatric reasons and is unclear to me why a psychiatric protocol was ordered on this patient. He expressly denies suicidal homicidal ideation. Does not meet involuntary committal criteria, has chronic pain secondary to head trauma sustained several years ago and is on methadone for this. He has a known history of epilepsy and is concerned today that he has been having more seizures than normal. He has no focal neurologic deficits on exam. His labs are notable for an acute kidney injury consistent with a prerenal azotemia. IV fluids are being administered and we will recheck basic metabolic panel thereafter. Patient reports that he has had some nausea, vomiting, difficulty tolerating oral intake and his pattern is consistent with dehydration. He is also mildly tachycardic at time of presentation although recently came off of oxycodone after he ran out and it could also have a component of opiate withdrawal. The patient has a complaint that he fell and struck his head very hard several days ago and was bleeding out of his ears. He has no hemotympanum on exam but a CT of the head will be obtained. 04/05/19 03:04 Repeat basic metabolic panel has not returned, CT the head is completely unremarkable. The patient was smoking in the bathroom, has been noted to be up walking around, eating Doritos, drinking a fast food beverage and in no apparent discomfort. The patient is electing to leave the emergency department at this time as we have informed her that these behaviors are unacceptable. He will be leaving without discharge paperwork as he did not wish to allow me to complete the paperwork prior to being discharged. His tachycardia has completely resolved after receiving IV fluids. Patient remains neuro intact. 04/05/19 03:07 - Vital Signs Vital signs: Temp Pulse Resp BP Pulse Ox 98.2 F 130 H 15 129/93 H 95 04/04/19 20:12 04/04/19 20:12 04/05/19 02:00 04/05/19 00:01 04/04/19 21:47 - Laboratory Result Diagrams: 04/04/19 20:55 04/04/19 20:55 Laboratory results interpreted by me: 04/04/19 04/04/19 04/04/19 20:55 20:55 20:55 Sodium 145.2 H BUN 27 H Creatinine 1.94 H Est GFR ( Amer) 45 L Est GFR (Non-Af Amer) 37 L Glucose 138 H Calcium 10.4 H ALT 12 L Creatine Kinase 191 H Total Protein 9.0 H Albumin 5.2 H Urine Protein 100 H Ur Leukocyte Esterase TRACE H Salicylates < 1.0 L Acetaminophen < 10 L - Diagnostic Test Radiology reviewed: Image reviewed Discharge - Discharge Clinical Impression: Prerenal azotemia, Narcotic dependence Epilepsy Qualifiers: Epilepsy type: unspecified Intractability: not intractable Status epilepticus: without status epilepticus Qualified Code(s): G40.909 - Epilepsy, unspecified, not intractable, without status epilepticus Condition: Stable Disposition: HOME, SELF-CARE Referrals: BUD ANDERSON MD [ACTIVE STAFF] - Follow up as needed
--- NOTE | 2019-04-05 00:17 | EKG REPORT ---
SEVERITY:- BORDERLINE ECG - SINUS TACHYCARDIA PROBABLE LEFT ATRIAL ABNORMALITY BORDERLINE T ABNORMALITIES, INFERIOR LEADS : Confirmed by: Matt Shelton 05-Apr-2019 00:16:37
--- NOTE | 2019-04-05 01:32 | RADIOLOGY REPORT (SQ) ---
EXAM DESCRIPTION: CT HEAD WITHOUT IV CONTRAST COMPLETED DATE/TME: 04/05/2019 00:02 CLINICAL HISTORY: 48 years, Male, fall, head trauma COMPARISON: 07/03/2015 TECHNIQUE: Axial CT images of the brain were obtained without contrast. Sagittal and coronal reformats were performed. DL 1043 Images stored on PACS. All CT scanners at this facility use dose modulation, iterative reconstruction, and/or weight based dosing when appropriate to reduce radiation dose to as low as reasonably achievable (ALARA). [facility]: Dose Right [facility]: CareDose [facility]: Dose Right [facility]: Teradose 4D [facility]: [employer] LIMITATIONS: None. FINDINGS: There is no acute cortical infarct, hemorrhage, mass, edema, hydrocephalus, or extra-axial fluid collection. The bain-white matter differentiation is preserved. The paranasal sinuses and mastoid air cells are clear. There is no acute fracture. There are changes of a right craniotomy. IMPRESSION: No acute intracranial abnormality. TECHNICAL DOCUMENTATION: Quality ID # [id number]: Final reports with documentation of one or more dose reduction techniques (e.g., Automated exposure control, adjustment of the mA and/or kV according to patient size, use of iterative reconstruction technique) copyright 2010 [employer]- All Rights Reserved
[2019-04-05 03:03] VITALS: BP 129/93
[2019-04-05 03:15] LABS: ANION GAP 6 (5-19); BLOOD UREA NITROGEN 26 mg/dL (7-20); CALCIUM 8.7 mg/dL (8.4-10.2); CARBON DIOXIDE 30 mmol/L (22-30); CHLORIDE 106 mmol/L (98-107); GLUCOSE 113 mg/dL (75-110); POTASSIUM 3.8 mmol/L (3.6-5.0); SODIUM 142.2 mmol/L (137-145)
== END 2019-04-05 03:32 | disposition home or self-care (01) ==
LOC: ER 19:54
DX: Z04.3 Encounter for examination and observation following other accident (principal); G40.909 Epilepsy, unspecified, not intractable, without status epilepticus; Z79.899 Other long term (current) drug therapy; R51 Headache; G89.29 Other chronic pain; S09.90XS Unspecified injury of head, sequela; X58.XXXS Exposure to other specified factors, sequela; F11.20 Opioid dependence, uncomplicated; N17.9 Acute kidney failure, unspecified; J44.9 Chronic obstructive pulmonary disease, unspecified; R07.89 Other chest pain; R11.2 Nausea with vomiting, unspecified; R00.0 Tachycardia, unspecified; F17.200 Nicotine dependence, unspecified, uncomplicated; Z88.5 Allergy status to narcotic agent
CPT/HCPCS: 93005; 99284; 96361; 96374; 36415; 80307 ×4; 82550; 85025; 80048; 80053; 81001; 84484; 71045; 70450; 93010; J2765; J7030

== ENCOUNTER 2019-12-06 16:22 | Emergency (ER) | payer MEDICAID ==
[2019-12-06 16:39] VITALS: BP 125/85
--- NOTE | 2019-12-06 18:40 | EKG REPORT ---
SEVERITY:- BORDERLINE ECG - SINUS RHYTHM BORDERLINE PROLONGED QT INTERVAL : Confirmed by: Mario Rodriguez MD 06-Dec-2019 18:39:28
== END 2019-12-06 19:01 | disposition left against medical advice (07) ==
LOC: ER 16:22
DX: Z53.21 Procedure and treatment not carried out due to patient leaving prior to being seen by health care provider (principal)
CPT/HCPCS: 93005; 93010

== ENCOUNTER 2020-04-07 15:05 | Inpatient (IN) | payer MEDICAID ==
[2020-04-07 15:40] LABS: ABSOLUTE BASOPHILS # (AUTO) 0.1 10^3/uL (0.0-0.2); ABSOLUTE EOSINOPHILS # (AUTO) 0.1 10^3/uL (0.0-0.6); ABSOLUTE LYMPHOCYTES (AUTO) 3.4 10^3/uL (0.5-4.7); ABSOLUTE NEUT (AUTO) 5.3 10^3/uL (1.7-8.2); BASOPHILS % (AUTO) 1.1 % (0-2); EOSINOPHILS % (AUTO) 0.8 % (0-6); HEMATOCRIT 42.3 % (37.9-51.0); HEMOGLOBIN 14.5 g/dL (13.5-17.0); LYMPHOCYTES % (AUTO) 34.5 % (13-45); MEAN CORPUSCULAR HEMOGLOBIN 30.5 pg (27.0-33.4); MEAN CORPUSCULAR HGB CONC 34.3 g/dL (32.0-36.0); MEAN CORPUSCULAR VOLUME 89 fl (80-97); PLATELET COUNT 377 10^3/uL (150-450); RED BLOOD COUNT 4.74 10^6/uL (4.35-5.55); RED CELL DISTRIBUTION WIDTH 13.4 % (11.5-14.0); SEGMENTED NEUTROPHILS % (AUTO) 53.6 % (42-78); TOTAL CELLS COUNTED % (AUTO) 100 %; WHITE BLOOD COUNT 9.8 10^3/uL (4.0-10.5)
--- NOTE | 2020-04-07 15:55 | ER Document Report ---
ED Medical Screen (RME) - General Chief Complaint: Chest Pain Stated Complaint: CHEST PAIN Time Seen by Provider: 04/07/20 15:54 Primary Care Provider: BUD ANDERSON MD [Primary Care Provider] - Follow up as needed Mode of Arrival: Wheelchair Information source: Patient Notes: 49-year-old male presented to ED for complaint of chest pain. He states he had achy chest pain since about 1130 12:00 today. He states about 3 or 4 minutes ago he started having sharp stabbing chest pain that is much worse than what he was having before. He states he did have a heart attack in September. He states there was post to do stents but did not do stents. He is alert oriented respirations regular nonlabored at this time. He states the pain has completely changed from when he was originally seen. I have greeted and performed a rapid initial assessment of this patient. A comprehensive ED assessment and evaluation of the patient, analysis of test results and completion of medical decision making process will be conducted by an additional ED providers. TRAVEL OUTSIDE OF THE [place] IN LAST 30 DAYS: No - Related Data Allergies/Adverse Reactions: codeine [Codeine] Allergy (Verified 04/07/20 15:49) nalbuphine HCl [From Nubain] Allergy (Verified 04/07/20 15:49) Past Medical History Pulmonary Medical History: Reports: Hx Asthma, Hx COPD Neurological Medical History: Reports: Hx Seizures Renal/ Medical History: Denies: Hx Peritoneal Dialysis GI Medical History: Reports: Hx Hepatitis - Hep C, Hx Ulcer Musculoskeltal Medical History: Reports Hx Arthritis, Reports Hx Musculoskeletal Deformity, Reports Hx Musculoskeletal Trauma Psychiatric Medical History: Reports: Hx Attention Deficit Hyperactivity Disorder, Hx Bipolar Disorder, Hx Depression Traumatic Medical History: Reports: Hx Traumatic Brain Injury Infectious Medical History: Reports: Hx Hepatitis - Hep C Past Surgical History: Reports: Hx Orthopedic Surgery - c6-c7 fusion, lower jaw reconstructions - Immunizations Hx Diphtheria, Pertussis, Tetanus Vaccination: No Physical Exam - Vital signs Vitals: Temp Pulse Resp BP Pulse Ox 98.6 F 101 H 20 112/80 96 04/07/20 15:29 04/07/20 15:29 04/07/20 15:29 04/07/20 15:29 04/07/20 15:29 Course - Vital Signs Vital signs: Temp Pulse Resp BP Pulse Ox 98.6 F 101 H 20 112/80 96 04/07/20 15:29 04/07/20 15:29 04/07/20 15:29 04/07/20 15:29 04/07/20 15:29 - Laboratory Result Diagrams: 04/07/20 15:20 04/07/20 15:20 Doctor's Discharge - Discharge Referrals: BUD ANDERSON MD [Primary Care Provider] - Follow up as needed
[2020-04-07 15:56] LABS: ALBUMIN 5.3 g/dL (3.5-5.0); ALKALINE PHOSPHATASE 92 U/L (38-126); ANION GAP 16 (5-19); ASPARTATE AMINO TRANSFERASE 59 U/L (17-59); BILIRUBIN,DIRECT 0.1 mg/dL (0.0-0.4); BILIRUBIN,TOTAL 0.8 mg/dL (0.2-1.3); BLOOD UREA NITROGEN 48 mg/dL (7-20); CALCIUM 10.6 mg/dL (8.4-10.2); CARBON DIOXIDE 26 mmol/L (22-30); CHLORIDE 95 mmol/L (98-107); GLUCOSE 153 mg/dL (75-110); POTASSIUM 4.5 mmol/L (3.6-5.0)
[2020-04-07] MEDS ORDERED: ASPIRIN 81 MG TABLET, CHEWABLE PO ONE (15:56)
[2020-04-07 16:03] LABS: CREATINE KINASE 2508 U/L (55-170)
[2020-04-07 16:11] LABS: TROPONIN I < 0.012 ng/mL
--- NOTE | 2020-04-07 16:48 | RADIOLOGY REPORT (SQ) ---
EXAM DESCRIPTION: CHEST 2 VIEWS IMAGES COMPLETED DATE/TIME: 04/07/2020 4:38 pm REASON FOR STUDY: chest pain COMPARISON: 09/26/2019 TECHNIQUE: Frontal and lateral radiographic views of the chest acquired. NUMBER OF VIEWS: Two view. LIMITATIONS: None. FINDINGS: LUNGS AND PLEURA: No pneumothorax. No consolidation or pleural effusion. MEDIASTINUM AND HILAR STRUCTURES: Stable. HEART AND VASCULAR STRUCTURES: Stable. BONES: No acute findings. HARDWARE: None in the chest. OTHER: No other significant finding. IMPRESSION: NO ACUTE FINDINGS. TECHNICAL DOCUMENTATION: JOB ID: [id number] [place]-72 2010 [employer]- All Rights Reserved Reading location - IP/workstation name: [employer]
--- NOTE | 2020-04-07 17:02 | ER Document Report ---
ED General - General Chief Complaint: Chest Pain Stated Complaint: CHEST PAIN Time Seen by Provider: 04/07/20 15:54 Primary Care Provider: BUD ANDERSON MD [Primary Care Provider] - Follow up as needed Mode of Arrival: Wheelchair TRAVEL OUTSIDE OF THE [place] IN LAST 30 DAYS: No - HPI Notes: Chief complaint: Chest pain History of present illness: 49-year-old male presenting for evaluation of chest pain present intermittently for almost 2 weeks. Patient says he was previously treated at [facility] in [facility] in September 2019 and was told that he had a non-STEMI. He apparently had a heart catheterization and they discussed possibility of placing stents but he said this was not done while he was in the hospital and he was discharged and supposed to follow-up with a human relations teacher but apparently has not been back to anyone. His primary care physician is Dr. Anderson and he says he has discussed possible need for referral back to cardiology for follow-up regarding the stents. He has made Dr. Anderson aware of his recurrent episodes of chest discomfort and says they were supposed to be arranging outpatient follow-up for him. Episode today was a little worse and is described as stabbing discomfort in the subxiphoid area without radiation which is fleeting. He denies associated nausea vomiting. He has some chronic dyspnea associated with COPD but says this is no different from usual. He denies any known history of renal disease. Says he is previously been treated with medication for hepatitis C. - Related Data Allergies/Adverse Reactions: codeine [Codeine] Allergy (Verified 04/07/20 15:49) nalbuphine HCl [From Nubain] Allergy (Verified 04/07/20 15:49) Home Medications: methadone. heart medication. fluid pill Past Medical History - General Information source: Patient, [facility] Records - Social History Smoking Status: Former Smoker Chew tobacco use (# tins/day): No Frequency of alcohol use: None Drug Abuse: None Lives with: Family Family History: CAD Patient has suicidal ideation: No Patient has homicidal ideation: No - Past Medical History Cardiac Medical History: Reports: Hx Coronary Artery Disease, Hx Heart Attack Pulmonary Medical History: Reports: Hx Asthma, Hx COPD Neurological Medical History: Reports: Hx Seizures Endocrine Medical History: Denies: Hx Diabetes Mellitus Type 1, Hx Diabetes Mellitus Type 2 Renal/ Medical History: Reports: None. Denies: Hx Peritoneal Dialysis Malignancy Medical History: Reports None GI Medical History: Reports: Hx Hepatitis - Hep C, Hx Ulcer Musculoskeletal Medical History: Reports Hx Arthritis, Reports Hx Musculoskeletal Deformity, Reports Hx Musculoskeletal Trauma Psychiatric Medical History: Reports: Hx Attention Deficit Hyperactivity Disorder, Hx Bipolar Disorder, Hx Depression Traumatic Medical History: Reports: Hx Traumatic Brain Injury Infectious Medical History: Reports: Hx Hepatitis - Hep C Past Surgical History: Reports: Hx Orthopedic Surgery - c6-c7 fusion, lower jaw reconstructions - Immunizations Hx Diphtheria, Pertussis, Tetanus Vaccination: No Review of Systems - Review of Systems Notes: Constitutional: Negative for fever. HENT: Negative for sore throat. Eyes: Negative for visual changes. Cardiovascular: As per HPI. Respiratory: As per HPI. Gastrointestinal: Negative for abdominal pain, vomiting or diarrhea. Genitourinary: Negative for dysuria. Musculoskeletal: Negative for back pain. Skin: Negative for rash. Neurological: Negative for headaches, weakness or numbness. 10 point ROS negative except as marked above and in HPI. Physical Exam - Vital signs Vitals: Temp Pulse Resp BP Pulse Ox 98.6 F 101 H 20 112/80 96 04/07/20 15:29 04/07/20 15:29 04/07/20 15:29 04/07/20 15:29 04/07/20 15:29 - Notes Notes: GENERAL: Middle-age male appearing in no acute distress. SKIN: Good turgor no rashes. HEAD: Normocephalic atraumatic. EYES: PERRLA. EOMI. Conjunctivae and sclerae clear. EARS: CANALS AND TMS CLEAR. NOSE: CLEAR. MOUTH: Dry oral mucosa. Poor dentition. No stridor or edema. No drooling. NECK: Supple. No masses or thyromegaly. No adenopathy. Carotids 2+ without bruits. No JVD. BACK: Symmetrical without tenderness. CHEST: Respirations unlabored. Breath sounds clear and symmetrical. HEART: Regular rhythm. No murmur gallop or rub. ABDOMEN: Soft nontender without masses, organomegaly or rebound. Bowel sounds normally active. No bruits. GENITALIA: Deferred. EXTREMITIES: No edema. No calf tenderness. Cap refill less than 1.5 seconds. Dorsalis pedis and posterior tibial pulses 3+ and symmetrical. NEUROLOGICAL: GCS 15. Alert and oriented x3. Normal gait. Fluent speech. Cranial nerves II through XII intact. Sensorimotor and cerebellar normal. Normal tone. PSYCHIATRIC: Flat affect. Course - Re-evaluation Re-evalutation: 04/07/20 17:10 Findings are consistent with rhabdomyolysis and acute kidney injury. Case has been reviewed in detail with his primary provider Dr. Anderson who is excepted for IMCU admission. - Vital Signs Vital signs: Temp Pulse Resp BP Pulse Ox 98.6 F 101 H 20 112/80 96 04/07/20 15:49 04/07/20 15:29 04/07/20 15:29 04/07/20 15:29 04/07/20 15:29 - Laboratory Result Diagrams: 04/07/20 15:20 04/07/20 15:20 Laboratory results interpreted by me: 04/07/20 04/07/20 04/07/20 15:20 15:20 15:20 Sodium 136.5 L Chloride 95 L BUN 48 H Creatinine 6.01 H Est GFR ( Amer) 12 L Est GFR (MDRD) Non-Af 10 L Glucose 153 H Calcium 10.6 H Magnesium 2.8 H Creatine Kinase 2508 H CK-MB (CK-2) 10.20 H Total Protein 9.0 H Albumin 5.3 H - Diagnostic Test Radiology reviewed: Reports reviewed - Portable chest x-ray shows no active disease per radiologist. - EKG Interpretation by Me Additional EKG results interpreted by me: 04/07/20 17:02 Twelve-lead EKG from 1517 hrs. is reviewed contemporaneously by me showing a normal sinus rhythm with a rate of 99 and a normal QRS axis of +15 degrees. His intervals are all normal. Nonspecific T wave flattening is present and is a little more prominent than on prior comparison tracing from 12/06/2019. Indication for current study: Chest pain. Discharge - Discharge Clinical Impression: Acute renal failure due to rhabdomyolysis Chest pain Qualifiers: Chest pain type: unspecified Qualified Code(s): R07.9 - Chest pain, unspecified Condition: Serious Disposition: ADMITTED INPATIENT Admitting Provider: Ian Unit Admitted: IMCU Referrals: BUD ANDERSON MD [Primary Care Provider] - Follow up as needed
[2020-04-07] MEDS ORDERED: NORMAL SALINE 1000 ML 1,000 ML IV ONE (17:11)
--- NOTE | 2020-04-07 17:24 | EKG REPORT ---
SEVERITY:- BORDERLINE ECG - SINUS OR ECTOPIC ATRIAL RHYTHM PROBABLE LEFT ATRIAL ABNORMALITY BORDERLINE T WAVE ABNORMALITIES : Confirmed by: Georgiana Palacio MD 07-Apr-2020 17:23:48
--- NOTE | 2020-04-07 17:24 | EKG REPORT ---
SEVERITY:- BORDERLINE ECG - SINUS TACHYCARDIA BORDERLINE T ABNORMALITIES, INFERIOR LEADS : Confirmed by: Georgiana Palacio MD 07-Apr-2020 17:23:44
[2020-04-07 18:55] LABS: INTERNATIONAL RATION (INR) 1.12; PROTHROMBIN TIME 14.4 SEC (11.4-15.4)
[2020-04-07 19:10] LABS: PHOSPHORUS 4.1 mg/dL (2.5-4.5)
[2020-04-07 19:35] LABS: FREE T4 (FREE THYROXINE) 1.88 ng/dL (0.78-2.19)
[2020-04-07 19:47] LABS: APPEARANCE,URINE CLOUDY; BILIRUBIN,URINE NEGATIVE (NEGATIVE); COLOR,URINE YELLOW; GLUCOSE, URINE NEGATIVE (NEGATIVE); KETONES,URINE NEGATIVE (NEGATIVE); PROTEIN,URINE 100 mg/dL (NEGATIVE); URINE SPECIFIC GRAVITY 1.023; UROBILINOGEN,URINE NEGATIVE mg/dL (<2.0)
[2020-04-07 19:48] LABS: THYROID STIMULATING HORMONE 5.56 uIU/mL (0.47-4.68)
[2020-04-07] MEDS: HEPARIN SOD (PORCINE) 5,000 UNIT/ML 1 ML VIAL SUBCUT SCH (20:00)
[2020-04-07] MEDS: NORMAL SALINE 1000 ML 1,000 ML IV PRN (20:00)
[2020-04-07 20:15] LABS: URINE BARBITURATES SCREEN NEGATIVE; URINE BENZODIAZEPINES SCREEN NEGATIVE; URINE COCAINE SCREEN NEGATIVE; URINE MARIJUANA (THC) SCREEN NEGATIVE; URINE PHENCYCLIDINE SCREEN NEGATIVE
[2020-04-07 20:22] LABS: UR PRO/CREAT RATIO RESULT 0.2 mg/mg (0.0-0.2); URINE PROTEIN 55.7 mg/dL (<12)
--- NOTE | 2020-04-07 20:23 | RADIOLOGY REPORT (SQ) ---
EXAM DESCRIPTION: US RETROPERITONEUM LIMITED COMPLETED DATE/TME: 04/07/2020 00:00 CLINICAL HISTORY: 49 years, Male, acute kidney injury COMPARISON: None. TECHNIQUE: Axial 2-D grayscale images of the retroperitoneum were acquired. Doppler was utilized. LIMITATIONS: None. FINDINGS: The abdominal aorta and IVC were not well visualized. The urinary bladder is collapsed, thus its evaluation is limited. Right kidney measures 11.6 x 6.4 x 5.5 cm in size. Left kidney measures 11.6 x 5.0 x 5.3 cm in size. Both kidneys appear normal in echogenicity. No evidence of hydronephrosis. IMPRESSION: No acute sonographic abnormality. copyright 2010 [employer]- All Rights Reserved
[2020-04-07 20:51] LABS: URINE METHADONE SCREEN UNCONFIRMED POSITIVE
[2020-04-07 21:15] LABS: NT PRO BNP 259 pg/mL (<125); TROPONIN I < 0.012 ng/mL
[2020-04-07] MEDS: CLONAZEPAM 1 MG TABLET PO PRN (22:47)
[2020-04-07 23:25] LABS: ARTERIAL BLOOD BASE EXCESS 0.9 mmol/L; ARTERIAL BLOOD H2CO3 1.26 mmol/L (1.05-1.35); ARTERIAL BLOOD HCO3 25.8 mmol/L (20-24); ARTERIAL BLOOD O2 SATURATION 95.1 % (94-98); ARTERIAL BLOOD PCO2 41.9 mmHg (35-45); ARTERIAL BLOOD PH 7.41 (7.35-7.45); ARTERIAL BLOOD PO2 74.8 mmHg (80-100); ARTERIAL BLOOD TOTAL CO2 27.1 mmol/L (23-27)
[2020-04-07 23:27] LABS: ARTERIAL BLOOD FIO2 ROOM AIR
[2020-04-08] MEDS: HEPARIN SOD (PORCINE) 5,000 UNIT/ML 1 ML VIAL SUBCUT SCH ×3 (05:07→21:21)
[2020-04-08 09:27] LABS: ABSOLUTE EOSINOPHILS # (AUTO) 0.2 10^3/uL (0.0-0.6); ABSOLUTE LYMPHOCYTES (AUTO) 2.3 10^3/uL (0.5-4.7); ABSOLUTE MONOCYTES (AUTO) 0.7 10^3/uL (0.1-1.4); BASOPHILS % (AUTO) 0.6 % (0-2); HEMATOCRIT 36.5 % (37.9-51.0); LYMPHOCYTES % (AUTO) 37.1 % (13-45); MEAN CORPUSCULAR HEMOGLOBIN 30.3 pg (27.0-33.4); MEAN CORPUSCULAR HGB CONC 33.5 g/dL (32.0-36.0); MEAN CORPUSCULAR VOLUME 90 fl (80-97); MONOCYTES % (AUTO) 10.9 % (3-13); PLATELET COUNT 276 10^3/uL (150-450); RED BLOOD COUNT 4.03 10^6/uL (4.35-5.55); SEGMENTED NEUTROPHILS % (AUTO) 48.4 % (42-78); TOTAL CELLS COUNTED % (AUTO) 100 %; WHITE BLOOD COUNT 6.2 10^3/uL (4.0-10.5)
[2020-04-08] MEDS: METHADONE HCL 10 MG TABLET PO SCH ×3 (09:28→21:22)
[2020-04-08] MEDS: NORMAL SALINE 1000 ML 1,000 ML IV PRN ×2 (09:29→16:28)
[2020-04-08 09:35] LABS: HEMOGLOBIN 12.2 g/dL (13.5-17.0)
[2020-04-08 09:47] LABS: ALBUMIN 3.6 g/dL (3.5-5.0); ALKALINE PHOSPHATASE 63 U/L (38-126); ANION GAP 6 (5-19); ASPARTATE AMINO TRANSFERASE 55 U/L (17-59); BILIRUBIN,TOTAL 0.3 mg/dL (0.2-1.3); BLOOD UREA NITROGEN 41 mg/dL (7-20); CALCIUM 8.5 mg/dL (8.4-10.2); CARBON DIOXIDE 30 mmol/L (22-30); CHLORIDE 102 mmol/L (98-107); GLUCOSE 96 mg/dL (75-110); POTASSIUM 3.9 mmol/L (3.6-5.0); TOTAL PROTEIN 6.5 g/dL (6.3-8.2)
[2020-04-08 10:32] LABS: CREATINE KINASE 2205 U/L (55-170)
[2020-04-08] MEDS: CLONAZEPAM 1 MG TABLET PO PRN ×2 (13:57→22:55)
--- NOTE | 2020-04-08 20:36 | PDOC H&P ---
History of Present Illness Admission Date/PCP: 04/07/20 17:17 BUD ANDERSON MD History of Present Illness: DASH PATIÑO is a 49 year old male ,He came to the emergency room for ev aluation of chest pain intermittently for 2 weeks patient story is not consistent and clear the chest pain he described is not typical angina-like chest pain apparently he had cardiac catheterization at [facility] in September 2019 but there was no coronary intervention that was done he was a heavy smoker he has COPD used to smoke more than a pack a day of cigarette and he said he has stopped smoking. In the emergency room he was evaluated the blood work that was done demonstrated serum creatinine of 6.01 CPK was 2508 he denies any trauma or injury there was no apparent reason for the acute kidney injury. Kidney ultrasound did not demonstrate any hydronephrosis the acute kidney injury could be secondary to rhabdomyolysis, the urine myoglobulin test result is not back yet, patient will be admitted and treated Past Medical History Cardiac Medical History: Reports: Coronary Artery Disease, Myocardial Infarction, Hypertension Pulmonary Medical History: Reports: Asthma, Chronic Obstructive Pulmonary Disease (COPD) Neurological Medical History: Reports: Seizures Endocrine Medical History: Reports: Diabetes Mellitus Type 2 Renal/ Medical History: Reports: None Malignancy Medical History: Reports: None GI Medical History: Reports: Hepatitis - Hep C Musculoskeltal Medical History: Reports: Arthritis Psychiatric Medical History: Reports: Attention Deficit Hyperactivity Disorder, Bipolar Disorder, Depression Traumatic Medical History: Reports: Traumatic Brain Injury Past Surgical History Past Surgical History: Reports: Orthopedic Surgery - c6-c7 fusion, lower jaw reconstructions Social History Lives with: Family Smoking Status: Former Smoker Electronic Cigarette use?: No Frequency of Alcohol Use: None Hx Recreational Drug Use: Yes Drugs: Methadone Hx Prescription Drug Abuse: Yes Family History Family History: CAD Parental Family History Reviewed: Yes Children Family History Reviewed: Yes Sibling(s) Family History Reviewed.: Yes Medication/Allergy Home Medications: Aspirin [Ecotrin 81 mg EC Tablet] 81 mg PO DAILY 04/08/20 Atorvastatin Calcium [Lipitor 80 mg Tablet] 80 mg PO QHS 04/08/20 Budesonide/Formoterol Fumarate [Symbicort Hfa 160-4.5 Mcg Inhaler 6 gm] 2 puff IH Q12 04/08/20 Furosemide [Lasix 40 mg Tablet] 40 mg PO DAILY 04/08/20 Methadone HCl [Methadone Oral Soln 1mg/Ml 30 Ml Bottle] 117 mg PO DAILY MDD PER CLINIC 04/08/20 Metoprolol Tartrate [Lopressor 25 mg Tablet] 25 mg PO Q12 04/08/20 Spironolactone [Aldactone 25 mg Tablet] 25 mg PO DAILY 04/08/20 Allergies/Adverse Reactions: codeine [Codeine] Allergy (Verified 04/07/20 15:49) nalbuphine HCl [From Nubain] Allergy (Verified 04/07/20 15:49) Review of Systems Constitutional: ABSENT: chills, fever(s), headache(s), weight gain, weight loss Eyes: ABSENT: visual disturbances Ears: ABSENT: hearing changes Cardiovascular: PRESENT: chest pain Respiratory: ABSENT: cough, hemoptysis Gastrointestinal: ABSENT: abdominal pain, constipation, diarrhea, hematemesis, hematochezia, nausea, vomiting Genitourinary: ABSENT: dysuria, hematuria Musculoskeletal: ABSENT: joint swelling Integumentary: ABSENT: rash, wounds Neurological: ABSENT: abnormal gait, abnormal speech, confusion, dizziness, focal weakness, syncope Psychiatric: ABSENT: anxiety, depression, homidical ideation, suicidal ideation Endocrine: ABSENT: cold intolerance, heat intolerance, menstrual abnormalities, polydipsia, polyuria Hematologic/Lymphatic: ABSENT: easy bleeding, easy bruising, lymphadenopathy Physical Exam Vital Signs: Temp Pulse Resp BP Pulse Ox 98.0 F 77 22 H 103/56 L 96 04/08/20 16:00 04/08/20 16:00 04/08/20 16:00 04/08/20 16:00 04/08/20 16:00 Intake & Output 04/07/20 04/08/20 04/09/20 06:59 06:59 06:59 Intake Total 2240 1150 Output Total 0 Balance 2240 1150 Weight 89 kg General appearance: PRESENT: no acute distress Head exam: PRESENT: atraumatic, normocephalic Eye exam: PRESENT: conjunctiva pink, EOMI, PERRLA Ear exam: PRESENT: normal external ear exam Mouth exam: PRESENT: moist, tongue midline Neck exam: PRESENT: full ROM Cardiovascular exam: PRESENT: RRR, +S1, +S2 Pulses: PRESENT: normal dorsalis pedis pul, +2 pedal pulses bilateral Vascular exam: PRESENT: normal capillary refill GI/Abdominal exam: PRESENT: normal bowel sounds, soft Rectal exam: PRESENT: deferred Neurological exam: PRESENT: alert, awake, oriented to person, oriented to place, oriented to time, oriented to situation, CN II-XII grossly intact Psychiatric exam: PRESENT: appropriate affect, normal mood Skin exam: PRESENT: dry, intact, warm. ABSENT: cyanosis, rash Results Laboratory Results: 04/08/20 08:30 04/08/20 08:30 04/07/20 04/07/20 04/08/20 20:10 22:55 08:30 WBC 6.2 RBC 4.03 L Hgb 12.2 L D Hct 36.5 L MCV 90 MCH 30.3 MCHC 33.5 RDW 13.0 Plt Count 276 Seg Neutrophils % 48.4 Carbonic Acid 1.26 HCO3/H2CO3 Ratio 20:1 ABG pH 7.41 ABG pCO2 41.9 ABG pO2 74.8 L ABG HCO3 25.8 H ABG O2 Saturation 95.1 ABG Base Excess 0.9 FiO2 ROOM AIR Sodium Potassium Chloride Carbon Dioxide Anion Gap BUN Creatinine Est GFR ( Amer) Glucose Calcium Total Bilirubin AST Alkaline Phosphatase Ammonia < 8.7 L Total Protein Albumin 04/08/20 08:30 WBC RBC Hgb Hct MCV MCH MCHC RDW Plt Count Seg Neutrophils % Carbonic Acid HCO3/H2CO3 Ratio ABG pH ABG pCO2 ABG pO2 ABG HCO3 ABG O2 Saturation ABG Base Excess FiO2 Sodium 137.6 Potassium 3.9 Chloride 102 Carbon Dioxide 30 Anion Gap 6 BUN 41 H Creatinine 1.85 H Est GFR ( Amer) 47 L Glucose 96 Calcium 8.5 Total Bilirubin 0.3 AST 55 Alkaline Phosphatase 63 Ammonia Total Protein 6.5 Albumin 3.6 04/07/20 04/07/20 04/07/20 15:20 15:20 20:10 Creatine Kinase 2508 H CK-MB (CK-2) 10.20 H Troponin I < 0.012 < 0.012 NT-Pro-B Natriuret Pep 259 H 04/07/20 04/07/20 04/08/20 20:10 20:30 02:41 Creatine Kinase 2449 H 2649 H CK-MB (CK-2) 8.52 H Troponin I NT-Pro-B Natriuret Pep 07/06/20 07/06/20 07/06/20 02:41 08:30 08:30 Creatine Kinase 2205 H CK-MB (CK-2) 7.88 H 6.67 H Troponin I NT-Pro-B Natriuret Pep Impressions: Renal Ultrasound 04/07/20 00:00 IMPRESSION: No acute sonographic abnormality. copyright 2010 [employer]- All Rights Reserved Chest X-Ray 04/07/20 15:55 IMPRESSION: NO ACUTE FINDINGS. Assessment & Plan - Diagnosis (1) TOM (acute kidney injury) Is this a current diagnosis for this admission?: Yes Plan: The serum creatinine is 6, there is no metabolic acidosis, there is no hyperkalemia, no immediate need for renal replacement therapy, either with normal saline, this is most likely from rhabdomyolysis (2) COPD (chronic obstructive pulmonary disease) Is this a current diagnosis for this admission?: Yes Plan: He has baseline wheezing (3) Chronic pain syndrome Is this a current diagnosis for this admission?: Yes Plan: Patient is on methadone program, continue same treatment (4) Chest pain Qualifiers: Chest pain type: unspecified Qualified Code(s): R07.9 - Chest pain, unspecified Is this a current diagnosis for this admission?: Yes Plan: The etiology of the chest pain is not clear (5) Rhabdomyolysis Qualifiers: Rhabdomyolysis type: non-traumatic Qualified Code(s): M62.82 - Rhabdomyolysis Is this a current diagnosis for this admission?: Yes
[2020-04-08] MEDS ORDERED: NORMAL SALINE 1000 ML 1,000 ML IV PRN (20:37)
--- NOTE | 2020-04-08 20:41 | PDOC PROGRESS REPORT ---
Subjective Progress Note for:: 04/08/20 Subjective:: Patient seen by the bedside, the serum creatinine is improved with hydration Reason For Visit: ACUTE KIDNEY INJURY, RHABOMYOLYSIS Physical Exam Vital Signs: Temp Pulse Resp BP Pulse Ox 98.0 F 77 22 H 103/56 L 96 04/08/20 16:00 04/08/20 16:00 04/08/20 16:00 04/08/20 16:00 04/08/20 16:00 Intake & Output 04/07/20 04/08/20 04/09/20 06:59 06:59 06:59 Intake Total 2240 1150 Output Total 0 Balance 2240 1150 Weight 89 kg General appearance: PRESENT: no acute distress Eye exam: PRESENT: PERRLA Respiratory exam: PRESENT: wheezes Cardiovascular exam: PRESENT: +S1, +S2 GI/Abdominal exam: PRESENT: soft Neurological exam: PRESENT: alert Results Laboratory Results: 04/08/20 08:30 04/08/20 08:30 04/07/20 04/07/20 04/08/20 20:10 22:55 08:30 WBC 6.2 RBC 4.03 L Hgb 12.2 L D Hct 36.5 L MCV 90 MCH 30.3 MCHC 33.5 RDW 13.0 Plt Count 276 Seg Neutrophils % 48.4 Carbonic Acid 1.26 HCO3/H2CO3 Ratio 20:1 ABG pH 7.41 ABG pCO2 41.9 ABG pO2 74.8 L ABG HCO3 25.8 H ABG O2 Saturation 95.1 ABG Base Excess 0.9 FiO2 ROOM AIR Sodium Potassium Chloride Carbon Dioxide Anion Gap BUN Creatinine Est GFR ( Amer) Glucose Calcium Total Bilirubin AST Alkaline Phosphatase Ammonia < 8.7 L Total Protein Albumin 04/08/20 08:30 WBC RBC Hgb Hct MCV MCH MCHC RDW Plt Count Seg Neutrophils % Carbonic Acid HCO3/H2CO3 Ratio ABG pH ABG pCO2 ABG pO2 ABG HCO3 ABG O2 Saturation ABG Base Excess FiO2 Sodium 137.6 Potassium 3.9 Chloride 102 Carbon Dioxide 30 Anion Gap 6 BUN 41 H Creatinine 1.85 H Est GFR ( Amer) 47 L Glucose 96 Calcium 8.5 Total Bilirubin 0.3 AST 55 Alkaline Phosphatase 63 Ammonia Total Protein 6.5 Albumin 3.6 04/07/20 04/07/20 04/07/20 15:20 15:20 20:10 Creatine Kinase 2508 H CK-MB (CK-2) 10.20 H Troponin I < 0.012 < 0.012 NT-Pro-B Natriuret Pep 259 H 04/07/20 04/07/20 04/08/20 20:10 20:30 02:41 Creatine Kinase 2449 H 2649 H CK-MB (CK-2) 8.52 H Troponin I NT-Pro-B Natriuret Pep 04/08/20 04/08/20 04/08/20 02:41 08:30 08:30 Creatine Kinase 2205 H CK-MB (CK-2) 7.88 H 6.67 H Troponin I NT-Pro-B Natriuret Pep Impressions: Renal Ultrasound 04/07/20 00:00 IMPRESSION: No acute sonographic abnormality. copyright 2011 [employer]- All Rights Reserved Chest X-Ray 04/07/20 15:55 IMPRESSION: NO ACUTE FINDINGS. Assessment & Plan - Diagnosis (1) TOM (acute kidney injury) Is this a current diagnosis for this admission?: Yes Plan: Serum creatinine is improved, reduce infusion rate from 150 to 75 cc/h (2) COPD (chronic obstructive pulmonary disease) Is this a current diagnosis for this admission?: Yes Plan: Continue Symbicort, bronchodilators (3) Chronic pain syndrome Is this a current diagnosis for this admission?: Yes Plan: Patient on methadone program continue same treatment (4) Chest pain Qualifiers: Chest pain type: unspecified Qualified Code(s): R07.9 - Chest pain, unspecified Is this a current diagnosis for this admission?: Yes Plan: ,troponin is negative (5) Rhabdomyolysis Qualifiers: Rhabdomyolysis type: non-traumatic Qualified Code(s): M62.82 - Rhabdomyolysis Is this a current diagnosis for this admission?: Yes Plan: Nontraumatic rhabdomyolysis, this could be related to statin therapy, patient on high intensity doses of atorvastatin - Time Time Spent with patient: 25-34 minutes Level of Care: IMCU Medications reviewed and adjusted accordingly: Yes
[2020-04-08] MEDS: ASPIRIN 81 MG TABLET, ENT COATED PO SCH (21:22)
[2020-04-08] MEDS: METOPROLOL TARTRATE 25 MG TABLET PO SCH (21:22)
[2020-04-08] MEDS ORDERED: ATORVASTATIN CALCIUM 80 MG TABLET PO SCH (22:00)
[2020-04-09 05:51] LABS: ABSOLUTE EOSINOPHILS # (AUTO) 0.3 10^3/uL (0.0-0.6); ABSOLUTE LYMPHOCYTES (AUTO) 2.5 10^3/uL (0.5-4.7); ABSOLUTE MONOCYTES (AUTO) 0.5 10^3/uL (0.1-1.4); ABSOLUTE NEUT (AUTO) 1.5 10^3/uL (1.7-8.2); BASOPHILS % (AUTO) 0.7 % (0-2); EOSINOPHILS % (AUTO) 5.2 % (0-6); HEMATOCRIT 34.6 % (37.9-51.0); HEMOGLOBIN 11.6 g/dL (13.5-17.0); LYMPHOCYTES % (AUTO) 52.7 % (13-45); MEAN CORPUSCULAR HEMOGLOBIN 30.5 pg (27.0-33.4); MEAN CORPUSCULAR HGB CONC 33.5 g/dL (32.0-36.0); MEAN CORPUSCULAR VOLUME 91 fl (80-97); MONOCYTES % (AUTO) 9.6 % (3-13); PLATELET COUNT 268 10^3/uL (150-450); RED BLOOD COUNT 3.79 10^6/uL (4.35-5.55); RED CELL DISTRIBUTION WIDTH 13.8 % (11.5-14.0); SEGMENTED NEUTROPHILS % (AUTO) 31.8 % (42-78); TOTAL CELLS COUNTED % (AUTO) 100 %; WHITE BLOOD COUNT 4.8 10^3/uL (4.0-10.5)
[2020-04-09] MEDS: METHADONE HCL 10 MG TABLET PO SCH ×3 (06:41→22:39)
[2020-04-09] MEDS: HEPARIN SOD (PORCINE) 5,000 UNIT/ML 1 ML VIAL SUBCUT SCH ×3 (06:42→22:40)
[2020-04-09] MEDS: CLONAZEPAM 1 MG TABLET PO PRN ×2 (08:00→22:39)
[2020-04-09 09:03] LABS: ALBUMIN 3.2 g/dL (3.5-5.0); ALKALINE PHOSPHATASE 61 U/L (38-126); ANION GAP 5 (5-19); ASPARTATE AMINO TRANSFERASE 49 U/L (17-59); BILIRUBIN,TOTAL 0.2 mg/dL (0.2-1.3); BLOOD UREA NITROGEN 23 mg/dL (7-20); CALCIUM 8.6 mg/dL (8.4-10.2); GLUCOSE 106 mg/dL (75-110); POTASSIUM 4.7 mmol/L (3.6-5.0); TOTAL PROTEIN 6.1 g/dL (6.3-8.2)
[2020-04-09 09:08] LABS: CARBON DIOXIDE 27 mmol/L (22-30); CHLORIDE 107 mmol/L (98-107)
[2020-04-09] MEDS: ASPIRIN 81 MG TABLET, ENT COATED PO SCH (10:01)
[2020-04-09] MEDS: FLUTICASONE/VILANTEROL 200-25 MCG/DOSE IH SCH (10:02)
[2020-04-09] MEDS: METOPROLOL TARTRATE 25 MG TABLET PO SCH ×2 (10:12→22:39)
[2020-04-09 16:37] LABS: ALBUMIN UR 37.1 % (.); ALPHA-1-GLOBULIN URINE 2.5 % (.); ALPHA-2-GLOBULIN URINE 18.9 % (.); GAMMA GLOBULIN URINE 23.5 % (.); M-SPIKE % UR 5.8 % (Not Observ); PROTEIN TOTAL URINE 74.2 mg/dL (Not Estab.)
--- NOTE | 2020-04-09 21:11 | PDOC PROGRESS REPORT ---
Subjective Progress Note for:: 04/09/20 Subjective:: Patient seen by the bedside, the serum creatinine is improved with hydration Reason For Visit: ACUTE KIDNEY INJURY, RHABOMYOLYSIS Physical Exam Vital Signs: Temp Pulse Resp BP Pulse Ox 97.8 F 71 17 120/66 95 04/09/20 19:18 04/09/20 19:18 04/09/20 19:18 04/09/20 19:18 04/09/20 19:18 Intake & Output 04/08/20 04/09/20 04/10/20 06:59 06:59 06:59 Intake Total 2240 4140 860 Output Total 0 Balance 2240 4140 860 Weight 89 kg 89 kg General appearance: PRESENT: no acute distress Eye exam: PRESENT: PERRLA Respiratory exam: PRESENT: clear to auscultation frances Cardiovascular exam: PRESENT: +S1, +S2 GI/Abdominal exam: PRESENT: soft Neurological exam: PRESENT: alert Results Laboratory Results: 04/09/20 04:44 04/09/20 04:44 04/09/20 04/09/20 04:44 04:44 WBC 4.8 RBC 3.79 L Hgb 11.6 L Hct 34.6 L MCV 91 MCH 30.5 MCHC 33.5 RDW 13.8 Plt Count 268 Seg Neutrophils % 31.8 L Sodium 138.6 Potassium 4.7 Chloride 107 Carbon Dioxide 27 Anion Gap 5 BUN 23 H Creatinine 1.02 Est GFR ( Amer) > 60 Glucose 106 Calcium 8.6 Total Bilirubin 0.2 AST 49 Alkaline Phosphatase 61 Total Protein 6.1 L Albumin 3.2 L 04/07/20 19:23 Clean Catch Midstream Urine Culture - Final NO GROWTH 2 DAYS 04/07/20 04/07/20 04/07/20 15:20 15:20 20:10 Creatine Kinase 2508 H CK-MB (CK-2) 10.20 H Troponin I < 0.012 < 0.012 NT-Pro-B Natriuret Pep 259 H 04/07/20 04/07/20 04/08/20 20:10 20:30 02:41 Creatine Kinase 2449 H 2649 H CK-MB (CK-2) 8.52 H Troponin I NT-Pro-B Natriuret Pep 04/08/20 04/08/20 04/08/20 02:41 08:30 08:30 Creatine Kinase 2205 H CK-MB (CK-2) 7.88 H 6.67 H Troponin I NT-Pro-B Natriuret Pep 04/09/20 11:40 Creatine Kinase CK-MB (CK-2) Troponin I < 0.012 NT-Pro-B Natriuret Pep Impressions: Renal Ultrasound 04/07/20 00:00 IMPRESSION: No acute sonographic abnormality. copyright 2010 [employer]- All Rights Reserved Chest X-Ray 04/07/20 15:55 IMPRESSION: NO ACUTE FINDINGS. Assessment & Plan - Diagnosis (1) TOM (acute kidney injury) Is this a current diagnosis for this admission?: Yes Plan: Resolved (2) COPD (chronic obstructive pulmonary disease) Is this a current diagnosis for this admission?: Yes Plan: Continue Symbicort, bronchodilators (3) Chronic pain syndrome Is this a current diagnosis for this admission?: Yes Plan: Patient on methadone program continue same treatment (4) Chest pain Qualifiers: Chest pain type: unspecified Qualified Code(s): R07.9 - Chest pain, unspecified Is this a current diagnosis for this admission?: Yes (5) Rhabdomyolysis Qualifiers: Rhabdomyolysis type: non-traumatic Qualified Code(s): M62.82 - Rhabdomyolysis Is this a current diagnosis for this admission?: Yes - Time Time Spent with patient: 35 or more minutes Level of Care: TELE
[2020-04-09] MEDS ORDERED: ATORVASTATIN CALCIUM 80 MG TABLET PO SCH (22:00)
[2020-04-09] MEDS: ATORVASTATIN CALCIUM 40 MG TABLET PO SCH (22:39)
[2020-04-10 05:53] LABS: ABSOLUTE EOSINOPHILS # (AUTO) 0.2 10^3/uL (0.0-0.6); ABSOLUTE LYMPHOCYTES (AUTO) 2.2 10^3/uL (0.5-4.7); ABSOLUTE MONOCYTES (AUTO) 0.3 10^3/uL (0.1-1.4); ABSOLUTE NEUT (AUTO) 1.7 10^3/uL (1.7-8.2); BASOPHILS % (AUTO) 0.8 % (0-2); EOSINOPHILS % (AUTO) 4.6 % (0-6); HEMATOCRIT 34.4 % (37.9-51.0); HEMOGLOBIN 11.3 g/dL (13.5-17.0); LYMPHOCYTES % (AUTO) 49.2 % (13-45); MEAN CORPUSCULAR HEMOGLOBIN 30.4 pg (27.0-33.4); MEAN CORPUSCULAR HGB CONC 32.9 g/dL (32.0-36.0); MEAN CORPUSCULAR VOLUME 92 fl (80-97); MONOCYTES % (AUTO) 7.5 % (3-13); PLATELET COUNT 239 10^3/uL (150-450); RED BLOOD COUNT 3.72 10^6/uL (4.35-5.55); RED CELL DISTRIBUTION WIDTH 13.4 % (11.5-14.0); SEGMENTED NEUTROPHILS % (AUTO) 37.9 % (42-78); TOTAL CELLS COUNTED % (AUTO) 100 %; WHITE BLOOD COUNT 4.6 10^3/uL (4.0-10.5)
[2020-04-10] MEDS: METHADONE HCL 10 MG TABLET PO SCH ×3 (05:58→22:09)
[2020-04-10] MEDS: HEPARIN SOD (PORCINE) 5,000 UNIT/ML 1 ML VIAL SUBCUT SCH ×3 (05:58→22:09)
[2020-04-10] MEDS: METOPROLOL TARTRATE 25 MG TABLET PO SCH ×2 (10:53→22:09)
[2020-04-10] MEDS: ASPIRIN 81 MG TABLET, ENT COATED PO SCH (10:53)
[2020-04-10] MEDS: FLUTICASONE/VILANTEROL 200-25 MCG/DOSE IH SCH (10:54)
[2020-04-10] MEDS: CLONAZEPAM 1 MG TABLET PO PRN ×2 (10:57→22:09)
[2020-04-10] MEDS ORDERED: REGADENOSON INJ 0.4 MG/5 ML DISP.SYRIN IV ONE (12:44)
[2020-04-10] MEDS ORDERED: NORMAL SALINE 1000 ML 1,000 ML IV PRN ×2 (16:27→17:39)
--- NOTE | 2020-04-10 16:33 | PDOC PROGRESS REPORT ---
Subjective Progress Note for:: 04/10/20 Subjective:: I saw patient today by the bedside, he complain of generalized body aches and pain, he has been extremely sleepy in the last few days since admission, whenever I come to his room is awake sleeping.The Cardiolite Lexiscan stress test was negative, patient needs to be ruled out for SARS-CoV-2 infection especially in this age of covid pandemic ,patient with SARS-CoV-2 tend to present in this fashion with generalized body aches and pain, excessive fatigue and sleepiness Reason For Visit: ACUTE KIDNEY INJURY, RHABOMYOLYSIS Physical Exam Vital Signs: Temp Pulse Resp BP Pulse Ox 98.6 F 71 18 125/89 H 97 04/10/20 11:42 04/10/20 11:42 04/10/20 11:42 04/10/20 11:42 04/10/20 11:42 Intake & Output 04/09/20 04/10/20 04/11/20 06:59 06:59 06:59 Intake Total 4140 1120 732 Balance 4140 1120 732 Weight 89 kg 90 kg General appearance: PRESENT: no acute distress Eye exam: PRESENT: PERRLA Respiratory exam: PRESENT: clear to auscultation frances Cardiovascular exam: PRESENT: +S1, +S2 GI/Abdominal exam: PRESENT: soft Neurological exam: PRESENT: alert, CN II-XII grossly intact Results Laboratory Results: 04/10/20 05:20 04/09/20 04:44 04/10/20 05:20 WBC 4.6 RBC 3.72 L Hgb 11.3 L Hct 34.4 L MCV 92 MCH 30.4 MCHC 32.9 RDW 13.4 Plt Count 239 Seg Neutrophils % 37.9 L 04/07/20 04/07/20 04/07/20 15:20 15:20 20:10 Creatine Kinase 2508 H CK-MB (CK-2) 10.20 H Troponin I < 0.012 < 0.012 NT-Pro-B Natriuret Pep 259 H 04/07/20 04/07/20 04/08/20 20:10 20:30 02:41 Creatine Kinase 2449 H 2649 H CK-MB (CK-2) 8.52 H Troponin I NT-Pro-B Natriuret Pep 04/08/20 04/08/20 04/08/20 02:41 08:30 08:30 Creatine Kinase 2205 H CK-MB (CK-2) 7.88 H 6.67 H Troponin I NT-Pro-B Natriuret Pep 04/09/20 11:40 Creatine Kinase CK-MB (CK-2) Troponin I < 0.012 NT-Pro-B Natriuret Pep Impressions: Renal Ultrasound 04/07/20 00:00 IMPRESSION: No acute sonographic abnormality. copyright 2011 [employer]- All Rights Reserved Chest X-Ray 04/07/20 15:55 IMPRESSION: NO ACUTE FINDINGS. Assessment & Plan - Diagnosis (1) TOM (acute kidney injury) Is this a current diagnosis for this admission?: Yes Plan: Resolved (2) COPD (chronic obstructive pulmonary disease) Is this a current diagnosis for this admission?: Yes (3) Chronic pain syndrome Is this a current diagnosis for this admission?: Yes (4) Chest pain Qualifiers: Chest pain type: unspecified Qualified Code(s): R07.9 - Chest pain, unspecified Is this a current diagnosis for this admission?: Yes Plan: Negative for ischemic heart disease (5) Rhabdomyolysis Qualifiers: Rhabdomyolysis type: non-traumatic Qualified Code(s): M62.82 - Rhabdomyolysis Is this a current diagnosis for this admission?: Yes - Time Time Spent with patient: 25-34 minutes Level of Care: MEDICAL
[2020-04-10 19:33] LABS: A TYPE INFLUENZA AG NEGATIVE (NEGATIVE); B INFLUENZA AG NEGATIVE (NEGATIVE)
[2020-04-10] MEDS: ATORVASTATIN CALCIUM 40 MG TABLET PO SCH (22:09)
[2020-04-11] MEDS: HEPARIN SOD (PORCINE) 5,000 UNIT/ML 1 ML VIAL SUBCUT SCH ×2 (05:17→13:22)
[2020-04-11] MEDS: METHADONE HCL 10 MG TABLET PO SCH ×2 (05:18→13:22)
[2020-04-11] MEDS: CLONAZEPAM 1 MG TABLET PO PRN (09:56)
[2020-04-11] MEDS: ASPIRIN 81 MG TABLET, ENT COATED PO SCH (09:56)
[2020-04-11] MEDS: FLUTICASONE/VILANTEROL 200-25 MCG/DOSE IH SCH (09:58)
[2020-04-11] MEDS: METOPROLOL TARTRATE 25 MG TABLET PO SCH (11:00)
[2020-04-11 16:46] VITALS: BP 130/70
--- NOTE | 2020-04-11 20:08 | PDOC DISCHARGE SUMMARY ---
Impression - Admit/DC Date/PCP Admission Date/Primary Care Provider: 04/07/20 17:17 BUD ANDERSON MD Discharge Date: 04/11/20 - Discharge Diagnosis (1) TOM (acute kidney injury) Is this a current diagnosis for this admission?: Yes (2) COPD (chronic obstructive pulmonary disease) Is this a current diagnosis for this admission?: Yes (3) Chronic pain syndrome Is this a current diagnosis for this admission?: Yes (4) Chest pain Is this a current diagnosis for this admission?: Yes (5) Rhabdomyolysis Is this a current diagnosis for this admission?: Yes - Additional Information Discharge Activity: Activity As Tolerated Referrals: BUD ANDERSON MD [Primary Care Provider] - Follow up as needed Prescriptions: Atorvastatin Calcium [Lipitor 40 mg Tablet] 40 mg PO QHS #90 tablet Home Medications: Aspirin [Ecotrin 81 mg EC Tablet] 81 mg PO DAILY 04/08/20 Budesonide/Formoterol Fumarate [Symbicort HFA 160-4.5 mcg Inhaler 6 gm] 2 puff IH Q12 04/08/20 Methadone HCl [Methadone Oral Soln 1Mg/ml 30 ml Bottle] 117 mg PO DAILY MDD PER CLINIC 04/08/20 Metoprolol Tartrate [Lopressor 25 mg Tablet] 25 mg PO Q12 04/08/20 Atorvastatin Calcium [Lipitor 40 mg Tablet] 40 mg PO QHS #90 tablet 04/11/20 History of Present Illiness History of Present Illness: DASH PATIÑO is a 49 year old male ,He came to the emergency room for evaluation of chest pain intermittently for 2 weeks patient story is not consistent and clear the chest pain he described is not typical angina-like chest pain apparently he had cardiac catheterization at [facility] in September 2019 but there was no coronary intervention that was done he was a heavy smoker he has COPD used to smoke more than a pack a day of cigarette and he said he has stopped smoking. In the emergency room he was evaluated the blood work that was done demonstrated serum creatinine of 6.01 CPK was 2508 he denies any trauma or injury there was no apparent reason for the acute kidney injury. Kidney ultrasound did not demonstrate any hydronephrosis the acute kidney injury could be secondary to rhabdomyolysis, the urine myoglobulin test result is not back yet, patient will be admitted and treated Hospital Course Hospital Course: Patient was admitted for the management of acute kidney injury with background of rhabdomyolysis, on admission the serum creatinine was 6. With hydration the serum creatinine was normalized kidney ultrasound was negative for hydronephrosis patient complained of chest pain, 3 sets of troponin was negative he underwent Cardiolite Lexiscan stress test, negative for reversibility. He also complained of generalized body aches he was screened for SARS-CoV-2 which was negative.Patient be discharged home todayThe rhabdomyolysis was nontraumatic in nature, it was felt to be due to atorvastatin, he takes 80 mg atorvastatin this was held and on discharge a reduced dose of 40 mg was prescribed. Patient is also on methadone program is on megadoses of methadone was very drowsy and sleepy throughout hospital stay Physical Exam Vital Signs: Temp Pulse Resp BP Pulse Ox 98.2 F 67 12 130/70 H 95 04/11/20 18:24 04/11/20 18:24 04/11/20 18:24 04/11/20 18:24 04/11/20 18:24 Intake & Output 04/10/20 04/11/20 04/12/20 06:59 06:59 06:59 Intake Total 1120 1072 60 Output Total 1525 Balance 1120 -453 60 Weight 90 kg 90 kg General appearance: PRESENT: no acute distress Respiratory exam: PRESENT: clear to auscultation frances Cardiovascular exam: PRESENT: +S1, +S2 GI/Abdominal exam: PRESENT: soft Neurological exam: PRESENT: alert Results Laboratory Results: WBC 4.6 10^3/uL (4.0-10.5) 04/10/20 05:20 RBC 3.72 10^6/uL (4.35-5.55) L 04/10/20 05:20 Hgb 11.3 g/dL (13.5-17.0) L 04/10/20 05:20 Hct 34.4 % (37.9-51.0) L 04/10/20 05:20 MCV 92 fl (80-97) 04/10/20 05:20 MCH 30.4 pg (27.0-33.4) 04/10/20 05:20 MCHC 32.9 g/dL (32.0-36.0) 04/10/20 05:20 RDW 13.4 % (11.5-14.0) 04/10/20 05:20 Plt Count 239 10^3/uL (150-450) 04/10/20 05:20 Lymph % (Auto) 49.2 % (13-45) H 04/10/20 05:20 [place] % (Auto) 7.5 % (3-13) 04/10/20 05:20 Eos % (Auto) 4.6 % (0-6) 04/10/20 05:20 Baso % (Auto) 0.8 % (0-2) 04/10/20 05:20 Absolute Neuts (auto) 1.7 10^3/uL (1.7-8.2) 04/10/20 05:20 Absolute Lymphs (auto) 2.2 10^3/uL (0.5-4.7) 04/10/20 05:20 Absolute Monos (auto) 0.3 10^3/uL (0.1-1.4) 04/10/20 05:20 Absolute Eos (auto) 0.2 10^3/uL (0.0-0.6) 04/10/20 05:20 Absolute Basos (auto) 0.0 10^3/uL (0.0-0.2) 04/10/20 05:20 Seg Neutrophils % 37.9 % (42-78) L 04/10/20 05:20 PT 14.4 SEC (11.4-15.4) 04/07/20 15:20 INR 1.12 04/07/20 15:20 Carbonic Acid 1.26 mmol/L (1.05-1.35) 04/07/20 22:55 HCO3/H2CO3 Ratio 20:1 04/07/20 22:55 ABG pH 7.41 (7.35-7.45) 04/07/20 22:55 ABG pCO2 41.9 mmHg (35-45) 04/07/20 22:55 ABG pO2 74.8 mmHg (80-100) L 04/07/20 22:55 ABG HCO3 25.8 mmol/L (20-24) H 04/07/20 22:55 ABG Total CO2 27.1 mmol/L (23-27) H 04/07/20 22:55 ABG O2 Saturation 95.1 % (94-98) 04/07/20 22:55 ABG Base Excess 0.9 mmol/L 04/07/20 22:55 FiO2 ROOM AIR 04/07/20 22:55 Sodium 138.6 mmol/L (137-145) 04/09/20 04:44 Potassium 4.7 mmol/L (3.6-5.0) 04/09/20 04:44 Chloride 107 mmol/L (98-107) 04/09/20 04:44 Carbon Dioxide 27 mmol/L (22-30) 04/09/20 04:44 Anion Gap 5 (5-19) 04/09/20 04:44 BUN 23 mg/dL (7-20) H 04/09/20 04:44 Creatinine 1.02 mg/dL (0.52-1.25) 04/09/20 04:44 Est GFR ( Amer) > 60 (>60) 04/09/20 04:44 Est GFR (MDRD) Non-Af > 60 (>60) 04/09/20 04:44 Glucose 106 mg/dL (75-110) 04/09/20 04:44 Hemoglobin A1c % 5.1 % (4.7-6.0) 04/08/20 08:30 Calcium 8.6 mg/dL (8.4-10.2) 04/09/20 04:44 Phosphorus 4.1 mg/dL (2.5-4.5) 04/07/20 15:20 Magnesium 2.8 mg/dL (1.6-2.3) H 04/07/20 15:20 Magnesium Cancelled 04/07/20 15:20 Total Bilirubin 0.2 mg/dL (0.2-1.3) 04/09/20 04:44 Direct Bilirubin 0.0 mg/dL (0.0-0.4) 04/09/20 04:44 Neonat Total Bilirubin Not Reportable 04/09/20 04:44 Neonat Direct Bilirubin Not Reportable 04/09/20 04:44 Neonat Indirect Bili Not Reportable 04/09/20 04:44 AST 49 U/L (17-59) 04/09/20 04:44 ALT 18 U/L (<50) 04/09/20 04:44 Alkaline Phosphatase 61 U/L (38-126) 04/09/20 04:44 Ammonia < 8.7 umol/L (9-33) L 04/07/20 20:10 Creatine Kinase 2205 U/L (55-170) H 04/08/20 08:30 CK-MB (CK-2) 6.67 ng/mL (<4.55) H 04/08/20 08:30 Troponin I < 0.012 ng/mL 04/09/20 11:40 NT-Pro-B Natriuret Pep 259 pg/mL (<125) H 04/07/20 20:10 Total Protein 6.1 g/dL (6.3-8.2) L 04/09/20 04:44 Albumin 3.2 g/dL (3.5-5.0) L 04/09/20 04:44 Amylase 67 U/L (30-110) 04/07/20 15:20 Lipase 84.0 U/L (23-300) 04/07/20 15:20 TSH 5.56 uIU/mL (0.47-4.68) H 04/07/20 15:20 Free T4 1.88 ng/dL (0.78-2.19) 04/07/20 15:20 Urine Color YELLOW 04/07/20 19:23 Urine Appearance CLOUDY 04/07/20 19:23 Urine pH 5.0 (5.0-9.0) 04/07/20 19:23 Ur Specific Hollis 1.023 04/07/20 19:23 Urine Protein 100 mg/dL (NEGATIVE) H 04/07/20 19:23 Urine Glucose (UA) NEGATIVE mg/dL (NEGATIVE) 04/07/20 19:23 Urine Ketones NEGATIVE mg/dL (NEGATIVE) 04/07/20 19:23 Urine Blood MODERATE (NEGATIVE) H 04/07/20 19:23 Urine Nitrite (Reflex) NEGATIVE (NEGATIVE) 04/07/20 19:23 Urine Bilirubin NEGATIVE (NEGATIVE) 04/07/20 19:23 Urine Urobilinogen NEGATIVE mg/dL (<2.0) 04/07/20 19:23 Leukocyte Esterase Rfl TRACE (NEGATIVE) H 04/07/20 19:23 Urine RBC (Auto) 1 /HPF 04/07/20 19:23 U Hyaline Cast (Auto) 23 /LPF 04/07/20 19:23 Urine Bacteria (Auto) TRACE /HPF 04/07/20 19:23 Urine WBC (Reflex) 8 /HPF 04/07/20 19:23 Squamous Epi Cells Auto 1 /HPF 04/07/20 19:23 Urine Mucus (Auto) FEW /LPF 04/07/20 19:23 Urine Myoglobin 3 ng/mL (0-13) 04/07/20 19:23 Urine Creatinine 288.0 mg/dL (22-328) 04/07/20 19:23 Protein/Creatinin Ratio 0.2 mg/mg (0.0-0.2) 04/07/20 19:23 Urine Total Protein 55.7 mg/dL (<12) H 04/07/20 19:23 Urine Total Protein 74.2 mg/dL (Not Estab.) 04/07/20 19:23 Urine Albumin 37.1 % (.) 04/07/20 19:23 U Otrtb-3-Nvjdwvcs 2.5 % (.) 04/07/20 19:23 U Kzfju-6-Rvrmvyza 18.9 % (.) 04/07/20 19:23 U Beta Globulin 17.9 % (.) 04/07/20 19:23 U Gamma Globulin 23.5 % (.) 04/07/20 19:23 U Random M-Matt (%) 5.8 % (Not Observ) H 04/07/20 19:23 Urine PEP Note Comment (.) 04/07/20 19:23 Urine Ascorbic Acid 20 (NEGATIVE) H 04/07/20 19:23 Urine Opiates Screen UNCONFIRMED POSITIVE 04/07/20 19:23 Urine Methadone Screen UNCONFIRMED POSITIVE 04/07/20 19:23 Ur Barbiturates Screen NEGATIVE 04/07/20 19:23 Ur Phencyclidine Scrn NEGATIVE 04/07/20 19:23 Ur Amphetamines Screen 04/07/20 19:23 U Benzodiazepines Scrn NEGATIVE 04/07/20 19:23 Urine Cocaine Screen NEGATIVE 04/07/20 19:23 U Marijuana (THC) Screen NEGATIVE 04/07/20 19:23 Influenza A (Rapid) NEGATIVE (NEGATIVE) 04/10/20 18:40 Influenza B (Rapid) NEGATIVE (NEGATIVE) 04/10/20 18:40 SARS-CoV-2 (PCR) NEGATIVE (NEGATIVE) 04/10/20 15:38 Group A Strep Rapid NEGATIVE (NEGATIVE) 04/10/20 18:40 04/07/20 04/07/20 04/07/20 15:20 20:10 20:30 CK-MB (CK-2) 10.20 H 8.52 H Troponin I < 0.012 < 0.012 NT-Pro-B Natriuret Pep 259 H 04/08/20 04/08/20 04/09/20 02:41 08:30 11:40 CK-MB (CK-2) 7.88 H 6.67 H Troponin I < 0.012 NT-Pro-B Natriuret Pep Impressions: Renal Ultrasound 04/07/20 00:00 IMPRESSION: No acute sonographic abnormality. copyright 2010 [employer]- All Rights Reserved Chest X-Ray 04/07/20 15:55 IMPRESSION: NO ACUTE FINDINGS. Stroke Is this a Stroke Patient?: No Acute Heart Failure - Is this a Heart Failure Patient?: No
[2020-04-15 17:34] LABS: A/G RATIO. 1.1 (0.7-1.7); ALBUMIN 3 4.4 g/dL (2.9-4.4); ALPHA-1-GLOBULIN 0.3 g/dL (0.0-0.4); BETA GLOBULIN 1.2 g/dL (0.7-1.3); GAMMA GLOBULINS 1.4 g/dL (0.4-1.8); IMMUNOGLOBULIN A 342 mg/dL (90-386); IMMUNOGLOBULIN G 1283 mg/dL (603-1613); IMMUNOGLOBULIN M 159 mg/dL (20-172); MONOCLONAL-SPIKE Not Observed g/dL (Not Observ); PROTEIN TOTAL SERUM 8.5 g/dL (6.0-8.5)
== END 2020-04-11 19:25 | disposition home or self-care (01) | DRG 683 ==
LOC: ER 15:05 → EH 17:17 → 3W 19:30 → 4N 04-08 15:30
PROVIDERS: ADMIT Internal Medicine; ATTEND Internal Medicine
DX: N17.9 Acute kidney failure, unspecified (principal); M62.82 Rhabdomyolysis; F11.20 Opioid dependence, uncomplicated; J44.9 Chronic obstructive pulmonary disease, unspecified; G89.4 Chronic pain syndrome; T46.6X5A Adverse effect of antihyperlipidemic and antiarteriosclerotic drugs, initial encounter; Z20.828 Contact with and (suspected) exposure to other viral communicable diseases; I25.10 Atherosclerotic heart disease of native coronary artery without angina pectoris; I10 Essential (primary) hypertension; E11.9 Type 2 diabetes mellitus without complications; B19.20 Unspecified viral hepatitis C without hepatic coma; F90.9 Attention-deficit hyperactivity disorder, unspecified type; F31.9 Bipolar disorder, unspecified; I25.2 Old myocardial infarction; Z87.891 Personal history of nicotine dependence; Z79.899 Other long term (current) drug therapy; Z87.820 Personal history of traumatic brain injury; Z98.1 Arthrodesis status; Z82.49 Family history of ischemic heart disease and other diseases of the circulatory system; Z79.82 Long term (current) use of aspirin; Z79.51 Long term (current) use of inhaled steroids; Z88.6 Allergy status to analgesic agent
CPT/HCPCS: 36415; 71046; 76775; 78452; 80053; 80307; 81001; 82140; 82150; 82550; 82553; 82570; 82803; 83036; 83690; 83735; 83874; 83880; 84100; 84156; 84166; 84439; 84443; 84484; 85025; 85610; 86320; 87040; 87070; 87086; 87635; 87804; 87880; 93005; 93010; 93017; 99285; A9500; C9803; J1644; J2785; J3490; J7030; Q9969

== ENCOUNTER 2020-08-21 14:42 | Emergency (ER) | payer MEDICAID ==
[2020-08-21 14:56] VITALS: BP 153/92
--- NOTE | 2020-08-21 16:49 | ER Document Report ---
ED Medical Screen (RME) - General Chief Complaint: Breathing Difficulty Stated Complaint: SHORT OF BREATH,COUGH,CONGESTION Time Seen by Provider: 08/21/20 16:24 Mode of Arrival: Ambulatory Information source: Patient Notes: 50-year-old male patient presenting to the emergency department chief complaint of shortness of breath, cough, body aches and chills that began this morning around 2 AM. Patient reports multiple exposures to Covid at the methadone clinic. Patient reports there he has note of at least 3 people who have had Covid. Patient reports history of COPD, reports he gets pneumonia easily. Patient does not appear to be in any acute distress, breathing is even and unlabored. I have greeted and performed a rapid initial assessment of this patient. A comprehensive ED assessment and evaluation of the patient, analysis of test results and completion of the medical decision making process will be conducted by additional ED providers. I have specifically instructed the patient or family members with the patient to immediately return to any nursing staff should anything change in the patient's condition or with their chief complaint. TRAVEL OUTSIDE OF THE [place] IN LAST 30 DAYS: No - Related Data Allergies/Adverse Reactions: codeine [Codeine] Allergy (Verified 08/21/20 16:24) nalbuphine HCl [From Nubain] Allergy (Verified 08/21/20 16:24) Past Medical History - Social History Chew tobacco use (# tins/day): No Frequency of alcohol use: None Drug Abuse: None - Past Medical History Cardiac Medical History: Reports: Hx Coronary Artery Disease, Hx Heart Attack, Hx Hypertension Pulmonary Medical History: Reports: Hx Asthma, Hx COPD Neurological Medical History: Reports: Hx Seizures Endocrine Medical History: Reports: Hx Diabetes Mellitus Type 2. Denies: Hx Diabetes Mellitus Type 1 Renal/ Medical History: Denies: Hx Peritoneal Dialysis GI Medical History: Reports: Hx Hepatitis - Hep C, Hx Ulcer Musculoskeltal Medical History: Reports Hx Arthritis, Reports Hx Musculoskeletal Deformity, Reports Hx Musculoskeletal Trauma Psychiatric Medical History: Reports: Hx Attention Deficit Hyperactivity Disorder, Hx Bipolar Disorder, Hx Depression Traumatic Medical History: Reports: Hx Traumatic Brain Injury Infectious Medical History: Reports: Hx Hepatitis - Hep C Past Surgical History: Reports: Hx Orthopedic Surgery - c6-c7 fusion, lower jaw reconstructions - Immunizations Hx Diphtheria, Pertussis, Tetanus Vaccination: No Physical Exam - Vital signs Vitals: Temp Pulse Resp BP Pulse Ox 97.8 F 85 20 153/92 H 92 08/21/20 14:56 08/21/20 14:56 08/21/20 14:56 08/21/20 14:56 08/21/20 14:56 Course - Vital Signs Vital signs: Temp Pulse Resp BP Pulse Ox 97.8 F 85 20 153/92 H 92 08/21/20 14:56 08/21/20 14:56 08/21/20 14:56 08/21/20 14:56 08/21/20 14:56
--- NOTE | 2020-08-21 17:17 | ER Document Report ---
ED Respiratory Problem - General Chief Complaint: Breathing Difficulty Stated Complaint: SHORT OF BREATH,COUGH,CONGESTION Time Seen by Provider: 08/21/20 16:24 Mode of Arrival: Ambulatory Information source: Patient Notes: 08/21/20 16:31 - [id number] 1970 Patient Age: 50 c/o SOB/difficulty breathing, pt states complaint started last night and has continued to worsens with generalized joint/body pain. pt reports feeling feverish with chills, no N/V, L Hanna [employer] assessing complaint and discussing continued POC with pt Initialized on 08/21/20 16:31 - END OF NOTE ED Medical Screen (Hanna iyer) - General Chief Complaint: Breathing Difficulty Stated Complaint: SHORT OF BREATH,COUGH,CONGESTION Time Seen by Provider: 08/21/20 16:24 Mode of Arrival: Ambulatory Information source: Patient Notes: 50-year-old male patient presenting to the emergency department chief complaint of shortness of breath, cough, body aches and chills that began this morning around 2 AM. Patient reports multiple exposures to Covid at the methadone clinic. Patient reports there he has note of at least 3 people who have had Cov id. Patient reports history of COPD, reports he gets pneumonia easily. Patient does not appear to be in any acute distress, breathing is even and unlabored. MY NOTES 50-year-old male arrives by POV after he was exposed to Covid while he was at the methadone clinic over the past week. He goes to methadone clinic on a daily basis. He reports last night around 0 100 he woke with sweaty body myalgias nonproductive cough shortness of breath. He also advises he stopped smoking cigarettes (3 packs a day since he was 13) only 2 months ago. He has not had anything alcohol fernandez for more than 20 years. I was advised by fellow doctors in the ER that he is well-known to be a chronic narcotic user TRAVEL OUTSIDE OF THE [place] IN LAST 30 DAYS: No - HPI Onset: This morning Duration: Worse/persistent Severity: Mild Pain Level: 1 - Related Data Allergies/Adverse Reactions: codeine [Codeine] Allergy (Verified 08/21/20 16:24) nalbuphine HCl [From Nubain] Allergy (Verified 08/21/20 16:24) Past Medical History - General Information source: Patient - Social History Smoking Status: Former Smoker Cigarette use (# per day): No Chew tobacco use (# tins/day): No Smoking Education Provided: No Frequency of alcohol use: None Drug Abuse: None Lives with: Family Family History: CAD Patient has suicidal ideation: No Patient has homicidal ideation: No - Past Medical History Cardiac Medical History: Reports: Hx Coronary Artery Disease, Hx Heart Attack, Hx Hypertension Pulmonary Medical History: Reports: Hx Asthma, Hx COPD Neurological Medical History: Reports: Hx Seizures Endocrine Medical History: Reports: Hx Diabetes Mellitus Type 2. Denies: Hx Diabetes Mellitus Type 1 Renal/ Medical History: Denies: Hx Peritoneal Dialysis GI Medical History: Reports: Hx Hepatitis - Hep C, Hx Ulcer Musculoskeletal Medical History: Reports Hx Arthritis, Reports Hx Musculoskeletal Deformity, Reports Hx Musculoskeletal Trauma Psychiatric Medical History: Reports: Hx Attention Deficit Hyperactivity Disorder, Hx Bipolar Disorder, Hx Depression Traumatic Medical History: Reports: Hx Traumatic Brain Injury Infectious Medical History: Reports: Hx Hepatitis - Hep C Past Surgical History: Reports: Hx Orthopedic Surgery - c6-c7 fusion, lower jaw reconstructions - Immunizations Hx Diphtheria, Pertussis, Tetanus Vaccination: No Review of Systems - Review of Systems Constitutional: See HPI, Weakness EENT: No symptoms reported Cardiovascular: No symptoms reported Respiratory: See HPI - I am impressed, Cough Gastrointestinal: No symptoms reported Genitourinary: No symptoms reported Male Genitourinary: No symptoms reported Musculoskeletal: No symptoms reported Skin: No symptoms reported Hematologic/Lymphatic: No symptoms reported Neurological/Psychological: See HPI, Weakness -: Yes All other systems reviewed and negative Physical Exam - Vital signs Vitals: Temp Pulse Resp BP Pulse Ox 97.8 F 85 20 153/92 H 92 08/21/20 14:56 08/21/20 14:56 08/21/20 14:56 08/21/20 14:56 08/21/20 14:56 Interpretation: Normal - General General appearance: Appears well, Alert - HEENT Head: Normocephalic, Atraumatic Eyes: Normal Pupils: PERRL - Respiratory Respiratory status: No respiratory distress Chest status: Nontender Breath sounds: Normal Chest palpation: Normal - Cardiovascular Rhythm: Regular Heart sounds: Normal auscultation Murmur: No - Abdominal Inspection: Normal Distension: No distension Bowel sounds: Normal Tenderness: Nontender Organomegaly: No organomegaly - Rectal Prostate: Other - Deferred - Genitourinary Scrotum: Other - Deferred - Back Back: Normal, Nontender - Extremities General upper extremity: Normal inspection, Nontender, Normal color, Normal ROM, Normal temperature General lower extremity: Normal inspection, Nontender, Normal color, Normal ROM, Normal temperature, Normal weight bearing. No: Mariella's sign - Neurological Neuro grossly intact: Yes Cognition: Normal Orientation: AAOx4 Luis Coma Scale Eye Opening: Spontaneous Luis Coma Scale Verbal: Oriented Luis Coma Scale Motor: Obeys Commands Luis Coma Scale Total: 15 Speech: Normal Motor strength normal: LUE, RUE, LLE, RLE Sensory: Normal - Psychological Associated symptoms: Normal affect, Normal mood - Skin Skin Temperature: Warm Skin Moisture: Dry Skin Color: Normal Course - Vital Signs Vital signs: Temp Pulse Resp BP Pulse Ox 97.8 F 85 20 153/92 H 92 08/21/20 14:56 08/21/20 14:56 08/21/20 14:56 08/21/20 14:56 08/21/20 14:56 - Diagnostic Test Radiology reviewed: Reports reviewed - Chest x-ray NAD per radiology I evaluated this as well and I agree with radiologist assessment Discharge - Discharge Clinical Impression: Viral syndrome, COVID-19 virus test result unknown Clinical Impression: (Ruled Out): Crome syndrome Condition: Stable Disposition: HOME, SELF-CARE Additional Instructions: Follow-up with personal doctor return to ER as needed. Take medicines as directed. Try to stay hydrated. May drink tea or chamomile tea and try to stay away from noninfected people and people of susceptible nature such as transplants or aged people. Prescriptions: Dexamethasone [Decadron 4 Mg Tablet] 4 mg PO DAILY #5 tablet Famotidine [Pepcid 20 mg Tablet] 20 mg PO BID #12 tablet Azithromycin [Zithromax 250 mg Tablet] 250 mg PO ASDIR PRN #6 tablet PRN Reason: Forms: Return to Work
--- NOTE | 2020-08-21 17:57 | RADIOLOGY REPORT (SQ) ---
EXAM DESCRIPTION: CHEST SINGLE VIEW IMAGES COMPLETED DATE/TIME: 08/21/2020 5:42 pm REASON FOR STUDY: cough/chills COMPARISON: 04/07/2020 EXAM PARAMETERS: NUMBER OF VIEWS: One view. TECHNIQUE: Single frontal radiographic view of the chest acquired. RADIATION DOSE: NA LIMITATIONS: None. FINDINGS: LUNGS AND PLEURA: Mild hyperexpansion. No consolidations. No pneumothorax or effusion. MEDIASTINUM AND HILAR STRUCTURES: No masses. Contour normal. HEART AND VASCULAR STRUCTURES: Heart normal in size. Normal vasculature. BONES: No acute findings. HARDWARE: None in the chest. OTHER: No other significant finding. IMPRESSION: NO ACUTE RADIOGRAPHIC FINDING IN THE CHEST. TECHNICAL DOCUMENTATION: JOB ID: [id number] 2010 [employer]- All Rights Reserved Reading location - IP/workstation name: [email or web address]
[2020-08-21 18:30] LABS: A TYPE INFLUENZA AG NEGATIVE (NEGATIVE); B INFLUENZA AG NEGATIVE (NEGATIVE)
[2020-08-21] MEDS ORDERED: FAMOTIDINE 20 MG TABLET PO ONE (18:48)
[2020-08-21] MEDS ORDERED: AZITHROMYCIN 250 MG TABLET PO ONE (18:48)
[2020-08-21] MEDS ORDERED: DEXAMETHASONE 4 MG TABLET PO ONE (18:48)
--- NOTE | 2020-08-21 19:27 | EKG REPORT ---
SEVERITY:- NORMAL ECG - SINUS RHYTHM : Confirmed by: Georgiana Palacio MD 21-Aug-2020 19:27:25
== END 2020-08-21 19:15 | disposition home or self-care (01) ==
LOC: ER 14:42
DX: B34.9 Viral infection, unspecified (principal); R06.00 Dyspnea, unspecified; R05 Cough; R06.02 Shortness of breath; R53.1 Weakness; Z20.828 Contact with and (suspected) exposure to other viral communicable diseases; F17.210 Nicotine dependence, cigarettes, uncomplicated; I10 Essential (primary) hypertension; E11.9 Type 2 diabetes mellitus without complications; Z86.19 Personal history of other infectious and parasitic diseases; I25.2 Old myocardial infarction
CPT/HCPCS: 93005; 99285; 87070; 87880; 87635; 87804; 71045; 93010; J3490 ×2; Q0144; C9803; J8540